=== PATIENT | female | born 1960 | race Two or more races ===

== ENCOUNTER 2022-09-10 13:18 | Inpatient (IN) | payer MEDICARE, OTHER ==
[~2022-09-10] VITALS: Ht 157.5 cm; Wt 88.3 kg
[2022-09-10 14:06] LABS: Basophils # (auto) 0 10 ^3/uL (0-0.2); Basophils % (auto) 0.5 % (0.0-2.0); Eosinophils # (auto) 0.1 10 ^3/uL (0-0.8); Eosinophils % (auto) 1.6 % (0.0-7.0); Hemoglobin 12.1 g/dL (12.2-16.2); Lymphocytes # (auto) 2.1 10 ^3/uL (0.4-5.4); Lymphocytes % (auto) 39.4 % (10.0-50.0); Mean Corpuscular Hemoglobin 27.4 pg (28.0-32.0); Mean Corpuscular Hgb Conc. 32.6 g/dL (32.0-36.0); Mean Corpuscular Volume 84.1 fL (80.0-100.0); Monocytes # (auto) 0.6 10 ^3/uL (0-1.3); Monocytes % (auto) 10.8 % (0.0-12.0); Neutrophils # (auto) 2.6 10 ^3/uL (1.6-8.6); Neutrophils % (auto) 47.7 % (37.0-80.0); Nucleated Red Blood Cells % 0.1 %; Red Cell Distribution Width 14.2 % (11.8-14.3); White Blood Cell 5.4 10^3/uL (4.4-10.8)
[2022-09-10 14:27] LABS: Albumin 4.1 g/dL (3.4-5.0); Calcium 9.3 mg/dL (8.5-10.1); Magnesium 1.8 mg/dL (1.6-2.6); Potassium 4.6 mmol/L (3.5-5.1)
[2022-09-10 14:29] LABS: BUN/Creatinine Ratio 10.4 (10.0-20.0); Bilirubin, Total 0.5 mg/dL (0.2-1.0); Total Protein 7.5 g/dL (6.4-8.2)
[2022-09-10 15:33] LABS: Lactic Acid w/Reflex 2.2 mmol/L (0.4-2.0)
[2022-09-10 15:42] LABS: Urine Bacteria NONE SEEN /hpf (None Seen); Urine Blood Negative /uL (Negative); Urine Specific Gravity 1.007 (1.001-1.035); Urine WBC 3 /hpf (0 - 5)
[2022-09-10] MEDS ORDERED: FUROSEMIDE 40 MG/4 ML VIAL IV ONE (16:30)
[2022-09-10] MEDS ORDERED: MECLIZINE HCL 25 MG TAB PO ONE (22:00)
[2022-09-11] VITALS (59 sets, daily range): BP systolic 103–206; BP diastolic 41–94
[2022-09-11] MEDS ORDERED: ONDANSETRON HCL 4 MG/2 ML VIAL IV PRN (00:30)
[2022-09-11] MEDS ORDERED: DEXTROSE (50%) 50ML SYRG IV PRN (00:30)
[2022-09-11] MEDS ORDERED: DOCUSATE SOD 100 MG CAP PO PRN (00:30)
[2022-09-11] MEDS ORDERED: ACETAMINOPHEN 325 MG TAB PO PRN (00:30)
[2022-09-11] MEDS ORDERED: MECLIZINE HCL 25 MG TAB PO PRN (00:30)
[2022-09-11] MEDS ORDERED: MORPHINE SULFATE INJ 2 MG/ml SYRG IV PRN (01:15)
[2022-09-11] MEDS ORDERED: NITROGLYCERIN 0.4 MG SL TAB SL PRN (01:15)
[2022-09-11] MEDS ORDERED: ATROPINE SULF 1 MG/10ml SYR IV ONE (01:30)
[2022-09-11] MEDS ORDERED: ATROPINE SULF 1 MG/10ml SYR ONE (01:50)
[2022-09-11] MEDS ORDERED: ATROPINE SULFATE 1 MG/1 ML VIAL ONE (01:51)
[2022-09-11] MEDS ORDERED: DOPamine 1600MCG/ML D5W 250 ML IV SCH ×2 (02:30)
[2022-09-11 05:30] LABS: Basophils # (auto) 0 10 ^3/uL (0-0.2); Basophils % (auto) 0.7 % (0.0-2.0); Eosinophils # (auto) 0.1 10 ^3/uL (0-0.8); Eosinophils % (auto) 2.4 % (0.0-7.0); Hematocrit 38.4 % (36.0-46.0); Hemoglobin 12.7 g/dL (12.2-16.2); Lymphocytes # (auto) 2.1 10 ^3/uL (0.4-5.4); Lymphocytes % (auto) 37.6 % (10.0-50.0); Mean Corpuscular Hemoglobin 27.5 pg (28.0-32.0); Mean Corpuscular Hgb Conc. 33.2 g/dL (32.0-36.0); Mean Corpuscular Volume 83.1 fL (80.0-100.0); Monocytes # (auto) 0.6 10 ^3/uL (0-1.3); Monocytes % (auto) 10.1 % (0.0-12.0); Neutrophils # (auto) 2.7 10 ^3/uL (1.6-8.6); Neutrophils % (auto) 49.2 % (37.0-80.0); Nucleated Red Blood Cells % 0.1 %; Red Blood Cells 4.62 10^6/uL (4.0-5.20); Red Cell Distribution Width 14.1 % (11.8-14.3); White Blood Cell 5.5 10^3/uL (4.4-10.8)
[2022-09-11 05:48] LABS: Albumin 4.3 g/dL (3.4-5.0); Potassium 3.3 mmol/L (3.5-5.1)
[2022-09-11 05:52] LABS: BUN/Creatinine Ratio 15.2 (10.0-20.0); Bilirubin, Total 0.5 mg/dL (0.2-1.0); Total Protein 8.1 g/dL (6.4-8.2)
[2022-09-11] MEDS: ACCU-CHEK COMFORT CURVE STRIP VI SCH ×4 (06:36→22:23)
[2022-09-11] MEDS: LEVOTHYROXINE SODIUM 25 MCG TAB PO SCH (06:36)
[2022-09-11] MEDS: InsuLIN REG 1unit/0.01ml Soln (100units/ml) SC SCH ×4 (06:38→22:31)
[2022-09-11] MEDS: SODIUM CHLOR 0.9% PF (SALINE LOCK) 10ML VIAL/SYR IV SCH ×3 (06:40→22:23)
[2022-09-11] MEDS: DOPamine 1600MCG/ML D5W 250 ML IV SCH ×2 (06:40→16:06)
[2022-09-11] MEDS ORDERED: METF-371 PO (07:10)
[2022-09-11] MEDS ORDERED: HYDR25TA4 PO (07:10)
[2022-09-11] MEDS ORDERED: PRAV20TA3 PO (07:10)
[2022-09-11] MEDS ORDERED: FENO145T27 PO (07:10)
[2022-09-11] MEDS ORDERED: [UNRECOGNIZED DRUG - CODE] PO (07:10)
[2022-09-11] MEDS ORDERED: RIV20T PO (07:10)
[2022-09-11] MEDS ORDERED: CHOL100047 PO (07:10)
[2022-09-11] MEDS ORDERED: METO-289 PO (07:10)
[2022-09-11] MEDS ORDERED: DIGO0.25 PO (07:10)
[2022-09-11] MEDS ORDERED: OMEP20TA PO (07:10)
[2022-09-11] MEDS ORDERED: LEVO25TA6 PO (07:10)
[2022-09-11] MEDS ORDERED: DOCU100T7 PO (07:10)
[2022-09-11] MEDS ORDERED: LOSA25TA15 PO (07:10)
[2022-09-11] MEDS ORDERED: COEN400C8 PO (07:10)
[2022-09-11] MEDS ORDERED: GLIP5TAB12 PO (07:45)
[2022-09-11] MEDS ORDERED: APIXABAN 5 MG TAB PO SCH (10:00)
[2022-09-11] MEDS ORDERED: POTASSIUM CHL 20 Meq TABLET PO ONE (10:30)
[2022-09-11] MEDS ORDERED: POTASSIUM CHL 20MEQ/100ML 100 ML IV ONE (10:30)
[2022-09-11] MEDS: FUROSEMIDE 40 MG/4 ML VIAL IV SCH (10:38)
[2022-09-11] MEDS: INSULIN LANTUS (GLARGINE) 1 /0.01ml (100units/ml) SC SCH (19:00)
[2022-09-11] MEDS: ENOXAPARIN SOD 100 MG/1 ML SYRINGE SC SCH (22:23)
[2022-09-11] MEDS: ATORVASTATIN 20 MG TAB PO SCH (22:23)
[2022-09-12] VITALS (62 sets, daily range): BP systolic 104–159; BP diastolic 47–88
[2022-09-12] MEDS: DOPamine 1600MCG/ML D5W 250 ML IV SCH (04:08)
[2022-09-12 05:29] LABS: Basophils # (auto) 0.1 10 ^3/uL (0-0.2); Basophils % (auto) 0.8 % (0.0-2.0); Eosinophils # (auto) 0.1 10 ^3/uL (0-0.8); Eosinophils % (auto) 2.1 % (0.0-7.0); Hematocrit 38.6 % (36.0-46.0); Hemoglobin 12.8 g/dL (12.2-16.2); Lymphocytes # (auto) 2.5 10 ^3/uL (0.4-5.4); Lymphocytes % (auto) 39.2 % (10.0-50.0); Mean Corpuscular Hemoglobin 27.7 pg (28.0-32.0); Mean Corpuscular Hgb Conc. 33.3 g/dL (32.0-36.0); Mean Corpuscular Volume 83.1 fL (80.0-100.0); Monocytes # (auto) 0.7 10 ^3/uL (0-1.3); Monocytes % (auto) 11.6 % (0.0-12.0); Neutrophils # (auto) 2.9 10 ^3/uL (1.6-8.6); Neutrophils % (auto) 46.3 % (37.0-80.0); Nucleated Red Blood Cells % 0.2 %; Red Blood Cells 4.64 10^6/uL (4.0-5.20); Red Cell Distribution Width 14.2 % (11.8-14.3); White Blood Cell 6.4 10^3/uL (4.4-10.8)
[2022-09-12 05:47] LABS: Potassium 3.8 mmol/L (3.5-5.1)
[2022-09-12 05:52] LABS: Albumin 4.1 g/dL (3.4-5.0); BUN/Creatinine Ratio 16.7 (10.0-20.0); Bilirubin, Total 0.6 mg/dL (0.2-1.0); Calcium 9.2 mg/dL (8.5-10.1); Total Protein 7.5 g/dL (6.4-8.2)
[2022-09-12] MEDS: SODIUM CHLOR 0.9% PF (SALINE LOCK) 10ML VIAL/SYR IV SCH ×3 (06:38→23:48)
[2022-09-12] MEDS: ACCU-CHEK COMFORT CURVE STRIP VI SCH ×4 (06:38→23:47)
[2022-09-12] MEDS: LEVOTHYROXINE SODIUM 25 MCG TAB PO SCH (06:38)
[2022-09-12] MEDS: InsuLIN REG 1unit/0.01ml Soln (100units/ml) SC SCH ×3 (06:40→17:00)
[2022-09-12] MEDS: POTASSIUM CHL 20 Meq TABLET PO SCH (10:39)
[2022-09-12] MEDS: ENOXAPARIN SOD 100 MG/1 ML SYRINGE SC SCH ×2 (10:39→23:48)
[2022-09-12] MEDS: FUROSEMIDE 40 MG/4 ML VIAL IV SCH (10:39)
[2022-09-12] MEDS: INSULIN LANTUS (GLARGINE) 1 /0.01ml (100units/ml) SC SCH (10:47)
[2022-09-12] MEDS: METOPROLOL TARTRATE 25 MG TAB PO SCH ×2 (15:24→23:47)
[2022-09-12] MEDS ORDERED: GLIP5TAB12 PO (15:31)
[2022-09-12] MEDS ORDERED: MET25T PO (15:33)
[2022-09-12] MEDS: SULFAMETHOX W/TRIMETH(800/160MG) DS TAB PO SCH ×2 (19:37→23:50)
[2022-09-12] MEDS: ATORVASTATIN 20 MG TAB PO SCH (23:47)
[2022-09-13] VITALS (17 sets, daily range): BP systolic 97–136; BP diastolic 39–91
[2022-09-13] MEDS: InsuLIN REG 1unit/0.01ml Soln (100units/ml) SC SCH ×2 (00:03→06:53)
[2022-09-13] MEDS: ACCU-CHEK COMFORT CURVE STRIP VI SCH (06:49)
[2022-09-13] MEDS: LEVOTHYROXINE SODIUM 25 MCG TAB PO SCH (06:49)
[2022-09-13] MEDS: SODIUM CHLOR 0.9% PF (SALINE LOCK) 10ML VIAL/SYR IV SCH (06:49)
[2022-09-13] MEDS: FUROSEMIDE 40 MG/4 ML VIAL IV SCH (09:39)
[2022-09-13] MEDS: METOPROLOL TARTRATE 25 MG TAB PO SCH (09:40)
[2022-09-13] MEDS: POTASSIUM CHL 20 Meq TABLET PO SCH (09:40)
[2022-09-13] MEDS: SULFAMETHOX W/TRIMETH(800/160MG) DS TAB PO SCH (09:40)
[2022-09-13] MEDS: ENOXAPARIN SOD 100 MG/1 ML SYRINGE SC SCH (09:41)
[2022-09-13] MEDS: INSULIN LANTUS (GLARGINE) 1 /0.01ml (100units/ml) SC SCH (09:51)
== END 2022-09-13 10:48 | disposition home or self-care (01) | DRG 310 ==
LOC: ER 13:18 → TELE 09-11 01:08 → UNDOADMIN 09-11 01:08 → TELE 09-11 02:56 → DOU IN ICU 09-11 04:52
PROVIDERS: ADMIT Nurse Practitioner Family; ATTEND Internal Medicine
PROC: 5A09357 Assistance with Respiratory Ventilation, Less than 24 Consecutive Hours, Continuous Positive Airway Pressure (ICD-10-PCS; principal; 2022-09-11)
PROC: 5A09357 Assistance with Respiratory Ventilation, Less than 24 Consecutive Hours, Continuous Positive Airway Pressure (ICD-10-PCS; 2022-09-12)
PROC: 5A09357 Assistance with Respiratory Ventilation, Less than 24 Consecutive Hours, Continuous Positive Airway Pressure (ICD-10-PCS; 2022-09-13)
DX: R00.1 Bradycardia, unspecified (principal); I48.91 Unspecified atrial fibrillation; E11.9 Type 2 diabetes mellitus without complications; E78.5 Hyperlipidemia, unspecified; I10 Essential (primary) hypertension; E03.9 Hypothyroidism, unspecified; E66.01 Morbid (severe) obesity due to excess calories; I07.1 Rheumatic tricuspid insufficiency; R79.89 Other specified abnormal findings of blood chemistry; K21.9 Gastro-esophageal reflux disease without esophagitis; K44.9 Diaphragmatic hernia without obstruction or gangrene; Z68.35 Body mass index [BMI] 35.0-35.9, adult; Z79.899 Other long term (current) drug therapy; Z83.3 Family history of diabetes mellitus; Z90.49 Acquired absence of other specified parts of digestive tract
CPT/HCPCS: 36415; 36600; 70450; 71045; 80053; 80162; 81001; 82805; 82962; 83605; 83735; 83880; 84443; 84484; 85025; 87081; 93005; 93306; 94660; 96365; 96375; G0378; J0461; J3480

== ENCOUNTER 2022-09-27 19:09 | Inpatient (IN) | payer MEDICARE, OTHER ==
[~2022-09-27] VITALS: Ht 165.1 cm; Wt 95.5 kg
[~2022-09-27 19:09] MED LIST: CHOL100047 PO; COEN400C8 PO; DOCU100T7 PO; FENO145T27 PO; GLIP5TAB12 PO; LEVO25TA6 PO; MET25T PO; METF-371 PO; OMEP20TA PO; PRAV20TA3 PO; RIV20T PO; [UNRECOGNIZED DRUG - CODE] PO
[2022-09-27 20:13] LABS: Basophils # (auto) 0.1 10 ^3/uL (0-0.2); Basophils % (auto) 0.9 % (0.0-2.0); Eosinophils # (auto) 0.1 10 ^3/uL (0-0.8); Eosinophils % (auto) 1.4 % (0.0-7.0); Hematocrit 35.9 % (36.0-46.0); Hemoglobin 11.7 g/dL (12.2-16.2); Lymphocytes # (auto) 2.2 10 ^3/uL (0.4-5.4); Lymphocytes % (auto) 39.3 % (10.0-50.0); Mean Corpuscular Hemoglobin 26.9 pg (28.0-32.0); Mean Corpuscular Hgb Conc. 32.7 g/dL (32.0-36.0); Mean Corpuscular Volume 82.4 fL (80.0-100.0); Monocytes # (auto) 0.6 10 ^3/uL (0-1.3); Monocytes % (auto) 10.1 % (0.0-12.0); Neutrophils # (auto) 2.8 10 ^3/uL (1.6-8.6); Neutrophils % (auto) 48.3 % (37.0-80.0); Nucleated Red Blood Cells % 0.1 %; Red Blood Cells 4.36 10^6/uL (4.0-5.20); Red Cell Distribution Width 14.7 % (11.8-14.3); White Blood Cell 5.7 10^3/uL (4.4-10.8)
[2022-09-27 21:18] LABS: Albumin 4.1 g/dL (3.4-5.0); Calcium 9.1 mg/dL (8.5-10.1); Potassium 4.1 mmol/L (3.5-5.1)
[2022-09-27 21:19] LABS: Urine Bacteria NONE SEEN /hpf (None Seen); Urine Blood Negative /uL (Negative); Urine Specific Gravity 1.007 (1.001-1.035); Urine WBC 1 /hpf (0 - 5)
[2022-09-27 21:21] LABS: Bilirubin, Total 0.4 mg/dL (0.2-1.0); Total Protein 7.8 g/dL (6.4-8.2)
[2022-09-27 21:33] LABS: INR 1.16 (0.9-1.15); Partial Thromboplastin Time 28.9 sec (24.6-33.4)
[2022-09-27] MEDS ORDERED: PIPERACILLIN-TAZOB 3.375GM 100 ML IV ONE (23:15)
[2022-09-28] MEDS ORDERED: MORPHINE SULFATE INJ 2 MG/ml SYRG IV PRN (03:00)
[2022-09-28] MEDS ORDERED: NITROGLYCERIN 0.4 MG SL TAB SL PRN (03:00)
[2022-09-28] MEDS: ONDANSETRON HCL 4 MG/2 ML VIAL IV SCH ×4 (06:00→17:45)
[2022-09-28] MEDS: MORPHINE SULFATE INJ 2 MG/ml SYRG IV SCH ×4 (06:00→17:45)
[2022-09-28] MEDS: glipiZIDE 5 MG TAB PO SCH (09:55)
[2022-09-28] MEDS: LEVOTHYROXINE SODIUM 25 MCG TAB PO SCH (09:56)
[2022-09-28] MEDS: metFORMIN HYDROCHLORIDE 850 MG TAB PO SCH ×2 (10:00→22:43)
[2022-09-28] MEDS ORDERED: ERYTHROMYCIN LACTOBIONATE 500 MG in SODIUM CHL 0.9% 250 ML IV SCH (10:00)
[2022-09-28] MEDS: METOPROLOL TARTRATE 25 MG TAB PO SCH ×2 (10:14→22:55)
[2022-09-28] MEDS: FUROSEMIDE 40 MG/4 ML VIAL IV SCH (10:14)
[2022-09-28] MEDS ORDERED: AZITHROMYCIN 500MG/ 250ML 250 ML IV ONE (10:30)
[2022-09-28 11:03] LABS: Free T3 2.76 pg/mL (2.3-4.2); Free T4 (Free Thyroxine) 1.12 ng/dL (0.89-1.76)
[2022-09-28] MEDS ORDERED: DEXTROSE (50%) 50ML SYRG IV PRN (16:00)
[2022-09-28] MEDS: ACCU-CHEK COMFORT CURVE STRIP VI SCH ×2 (17:00→22:34)
[2022-09-28] MEDS: InsuLIN REG 1unit/0.01ml Soln (100units/ml) SC SCH ×2 (17:00→22:39)
[2022-09-28] MEDS: IPRATROPIUM BROM 0.5 MG/2.5ML INH SOL NEB SCH ×2 (17:43→23:40)
[2022-09-28] MEDS ORDERED: RIVAROXABAN 15 MG TAB PO SCH (18:00)
[2022-09-28 19:00] VITALS: BP 128/74
[2022-09-28] MEDS ORDERED: ATORVASTATIN 20 MG TAB PO SCH (22:00)
[2022-09-29] MEDS: ONDANSETRON HCL 4 MG/2 ML VIAL IV SCH ×4 (02:00→14:00)
[2022-09-29] MEDS: MORPHINE SULFATE INJ 2 MG/ml SYRG IV SCH ×4 (02:00→14:00)
[2022-09-29 05:07] LABS: Cholesterol 84 mg/dL (< 200)
[2022-09-29 05:10] LABS: HDL Cholesterol 26 mg/dL (40-59); LDL Cholesterol 49 mg/dL (< 100); Triglycerides 126 mg/dL (< 150)
[2022-09-29] MEDS: IPRATROPIUM BROM 0.5 MG/2.5ML INH SOL NEB SCH ×2 (05:39→11:13)
[2022-09-29] MEDS: ACCU-CHEK COMFORT CURVE STRIP VI SCH ×2 (06:00→11:39)
[2022-09-29] MEDS: InsuLIN REG 1unit/0.01ml Soln (100units/ml) SC SCH ×2 (06:40→11:24)
[2022-09-29] MEDS ORDERED: AZITHROMYCIN 500MG/ 250ML 250 ML IV SCH ×2 (10:00)
[2022-09-29] MEDS ORDERED: FAMOTIDINE 20 MG TAB PO SCH (10:00)
[2022-09-29] MEDS: metFORMIN HYDROCHLORIDE 850 MG TAB PO SCH (10:00)
[2022-09-29] MEDS: glipiZIDE 5 MG TAB PO SCH (10:00)
[2022-09-29] MEDS ORDERED: CEFTRIAXONE SODIUM 2 GM in D5W 5% 100 ML IV SCH (10:00)
[2022-09-29] MEDS: FUROSEMIDE 40 MG/4 ML VIAL IV SCH (11:09)
[2022-09-29] MEDS: METOPROLOL TARTRATE 25 MG TAB PO SCH (11:10)
[2022-09-29] MEDS: LEVOTHYROXINE SODIUM 25 MCG TAB PO SCH (11:10)
[2022-09-29] MEDS ORDERED: DOXY-447 PO ×2 (14:43)
[2022-09-29] MEDS ORDERED: ALBUAER3 IN (14:43)
[2022-09-29 16:11] VITALS: BP 111/68
[2022-10-09] MEDS ORDERED: ATOR10TA52 PO (09:16)
== END 2022-09-29 16:48 | disposition home or self-care (01) | DRG 177 ==
LOC: ER 19:14 → TELE 09-28 03:11
PROVIDERS: ADMIT Internal Medicine; ATTEND Internal Medicine
DX: J15.6 Pneumonia due to other Gram-negative bacteria (principal); I50.33 Acute on chronic diastolic (congestive) heart failure; N30.00 Acute cystitis without hematuria; I48.19 Other persistent atrial fibrillation; J15.9 Unspecified bacterial pneumonia; Z20.822 Contact with and (suspected) exposure to COVID-19; I11.0 Hypertensive heart disease with heart failure; E11.9 Type 2 diabetes mellitus without complications; E03.9 Hypothyroidism, unspecified; I27.20 Pulmonary hypertension, unspecified; K21.9 Gastro-esophageal reflux disease without esophagitis; E78.5 Hyperlipidemia, unspecified; K44.9 Diaphragmatic hernia without obstruction or gangrene; M19.90 Unspecified osteoarthritis, unspecified site; E66.01 Morbid (severe) obesity due to excess calories; Z79.899 Other long term (current) drug therapy; Z79.84 Long term (current) use of oral hypoglycemic drugs; Z83.3 Family history of diabetes mellitus; Z90.49 Acquired absence of other specified parts of digestive tract; Z68.35 Body mass index [BMI] 35.0-35.9, adult
CPT/HCPCS: 36415; 71045; 71275; 80053; 80061; 81001; 82962; 83036; 83605; 83735; 83880; 84439; 84443; 84481; 84484; 85025; 85379; 85610; 85730; 87040; 87426; 87804; 94640; 96365; 96375; G0378; J0696; J1815; J2405; J2543; J7060

== ENCOUNTER 2022-10-13 08:25 | Inpatient (IN) | payer MEDICARE, OTHER ==
[2022-10-08 11:22] LABS: Basophils # (auto) 0 10 ^3/uL (0-0.2); Basophils % (auto) 0.4 % (0.0-2.0); Eosinophils # (auto) 0.1 10 ^3/uL (0-0.8); Eosinophils % (auto) 1.5 % (0.0-7.0)
[2022-10-08 11:24] LABS: Hematocrit 37.9 % (36.0-46.0); Hemoglobin 12.1 g/dL (12.2-16.2); Lymphocytes # (auto) 2.3 10 ^3/uL (0.4-5.4); Lymphocytes % (auto) 46.4 % (10.0-50.0); Mean Corpuscular Hemoglobin 25.9 pg (28.0-32.0); Mean Corpuscular Hgb Conc. 31.9 g/dL (32.0-36.0); Mean Corpuscular Volume 81.3 fL (80.0-100.0); Monocytes # (auto) 0.6 10 ^3/uL (0-1.3); Monocytes % (auto) 11.1 % (0.0-12.0); Neutrophils % (auto) 40.6 % (37.0-80.0); Nucleated Red Blood Cells % 0.1 %; Red Blood Cells 4.67 10^6/uL (4.0-5.20); Red Cell Distribution Width 14.3 % (11.8-14.3)
[2022-10-08 11:49] LABS: Urine Bacteria NONE SEEN /hpf (None Seen); Urine Blood Negative /uL (Negative); Urine Specific Gravity 1.013 (1.001-1.035); Urine WBC 2 /hpf (0 - 5)
[2022-10-08 11:57] LABS: Albumin 3.9 g/dL (3.4-5.0); Calcium 8.9 mg/dL (8.5-10.1); Potassium 4.6 mmol/L (3.5-5.1)
[2022-10-08 12:00] LABS: BUN/Creatinine Ratio 13.8 (10.0-20.0); Bilirubin, Total 0.6 mg/dL (0.2-1.0); Total Protein 7.6 g/dL (6.4-8.2)
[2022-10-08 12:48] LABS: INR 1.28 (0.9-1.15); Partial Thromboplastin Time 32.3 SEC (24.5-34.5)
[~2022-10-13] VITALS: Ht 165.1 cm; Wt 97.5 kg
[~2022-10-13 08:25] MED LIST changes: +ALBUAER3 IN; +ATOR10TA52 PO; -PRAV20TA3 PO
[2022-10-13] MEDS ORDERED: ceFAZolin 1GM/50ML 100 ML IV ONE (08:56)
[2022-10-13] MEDS ORDERED: MORPHINE SULFATE 4 MG/ML SYR/VIAL IV PRN ×2 (12:30→14:15)
[2022-10-13] MEDS ORDERED: NITROGLYCERIN 0.4 MG SL TAB SL PRN (12:30)
[2022-10-13] MEDS ORDERED: MORPHINE SULFATE INJ 2 MG/ml SYRG IV PRN (12:30)
[2022-10-13] MEDS: SODIUM CHLORIDE 0.9% 1,000 ML IV SCH ×2 (12:30→20:30)
[2022-10-13] MEDS ORDERED: ONDANSETRON HCL 4 MG/2 ML VIAL IV PRN ×2 (12:30→14:15)
[2022-10-13] MEDS: ceFAZolin 1GM/50ML 50 ML IV ONE (12:30)
[2022-10-13] MEDS ORDERED: ACETAMINOPHEN 500 MG TAB PO PRN (12:30)
[2022-10-13] MEDS ORDERED: fentaNYL CITRATE 100 MCG/2 ML VL ONE (12:40)
[2022-10-13] MEDS ORDERED: MEPERIDINE HCL (25 MG/ML) 1ML VIAL ONE ×2 (12:41)
[2022-10-13] MEDS ORDERED: DexAMETHasone SOD PHOS 10MG/1ML VIAL INJ ONE (12:41)
[2022-10-13] MEDS ORDERED: MIDAZOLAM HCL 2MG/2ML 2ml VIAL (1mg/ml) ONE (12:41)
[2022-10-13] MEDS ORDERED: PROPOFOL 10 MG/ML 20 ML IV ONE (12:41)
[2022-10-13] MEDS ORDERED: fentaNYL CITRATE 5 ML ONE (12:41)
[2022-10-13] MEDS ORDERED: LIDOCAINE W/ EPINEPHRINE 1% 20ML VIAL ONE (13:24)
[2022-10-13] MEDS ORDERED: BUPIVACAINE 0.25% INJ 50ML VIAL ONE (13:25)
[2022-10-13] MEDS ORDERED: ePHEDrine SULFATE 50 MG/ML AMP IV PRN (14:15)
[2022-10-13] MEDS ORDERED: MIDAZOLAM HCL 2MG/2ML 2ml VIAL (1mg/ml) IV PRN (14:15)
[2022-10-13] MEDS ORDERED: HYDROmorphone HCL 2 MG/ML VL/or syr IV PRN (14:15)
[2022-10-13] MEDS ORDERED: LABETALOL HCL 5 MG/ML 4ML SYRINGE IV PRN (14:15)
[2022-10-13] MEDS ORDERED: METHYLENE BLUE 0.5% 5MG/ML 10ml AMP IV ONE (14:28)
[2022-10-13] MEDS ORDERED: SUGAMMADEX 200mg/2ml Vial (100MG/ML) IV ONE (15:23)
[2022-10-13] MEDS ORDERED: HYDROmorphone HCL 2 MG/ML VL/or syr IV ONE (16:08)
[2022-10-13] MEDS ORDERED: DEXTROSE (50%) 50ML SYRG IV PRN (16:15)
[2022-10-13] MEDS: ACCU-CHEK COMFORT CURVE STRIP VI SCH ×2 (17:00→22:25)
[2022-10-13 19:00] VITALS: BP 132/67
[2022-10-13] MEDS: InsuLIN REG 1unit/0.01ml Soln (100units/ml) SC SCH ×2 (19:24→22:21)
[2022-10-13] MEDS: HYDROcodone-ACET 5/325MG TAB PO PRN (19:35)
[2022-10-13] MEDS: ENOXAPARIN SOD 40 MG/0.4 ML SYRINGE SC SCH (22:00)
[2022-10-13] MEDS: METOPROLOL TARTRATE 25 MG TAB PO SCH (22:22)
[2022-10-14] MEDS: HYDROcodone-ACET 5/325MG TAB PO PRN ×3 (01:45→21:18)
[2022-10-14 05:00] VITALS: BP 112/65
[2022-10-14 06:24] LABS: Basophils # (auto) 0 10 ^3/uL (0-0.2); Eosinophils # (auto) 0 10 ^3/uL (0-0.8); Hematocrit 32.4 % (36.0-46.0); Hemoglobin 10.5 g/dL (12.2-16.2); Lymphocytes # (auto) 0.9 10 ^3/uL (0.4-5.4); Lymphocytes % (auto) 9.9 % (10.0-50.0); Mean Corpuscular Hemoglobin 26.1 pg (28.0-32.0); Mean Corpuscular Hgb Conc. 32.4 g/dL (32.0-36.0); Mean Corpuscular Volume 80.5 fL (80.0-100.0); Monocytes # (auto) 0.7 10 ^3/uL (0-1.3); Monocytes % (auto) 7.3 % (0.0-12.0); Neutrophils # (auto) 7.7 10 ^3/uL (1.6-8.6); Neutrophils % (auto) 82.8 % (37.0-80.0); Red Blood Cells 4.02 10^6/uL (4.0-5.20); Red Cell Distribution Width 14.6 % (11.8-14.3); White Blood Cell 9.3 10^3/uL (4.4-10.8)
[2022-10-14 06:34] LABS: Calcium 8.6 mg/dL (8.5-10.1); Potassium 4.3 mmol/L (3.5-5.1)
[2022-10-14] MEDS: LEVOTHYROXINE SODIUM 25 MCG TAB PO SCH (06:39)
[2022-10-14] MEDS: ACCU-CHEK COMFORT CURVE STRIP VI SCH ×4 (06:39→21:38)
[2022-10-14] MEDS: InsuLIN REG 1unit/0.01ml Soln (100units/ml) SC SCH ×4 (06:43→21:37)
[2022-10-14 09:12] VITALS: BP 115/61
[2022-10-14] MEDS: ENOXAPARIN SOD 40 MG/0.4 ML SYRINGE SC SCH (10:00)
[2022-10-14] MEDS: SODIUM CHLORIDE 0.9% 1,000 ML IV SCH (10:04)
[2022-10-14] MEDS: METOPROLOL TARTRATE 25 MG TAB PO SCH ×2 (10:05→21:20)
[2022-10-14] MEDS: FUROSEMIDE 40 MG TAB PO SCH (10:05)
[2022-10-14 13:00] VITALS: BP 116/50
[2022-10-14 13:05] VITALS: BP 115/61
[2022-10-14 16:59] VITALS: BP 115/45
[2022-10-14] MEDS ORDERED: RIVAROXABAN 20 MG TAB PO SCH (18:00)
[2022-10-14 22:00] VITALS: BP 130/73
[2022-10-15] MEDS ORDERED: DOCUSATE SOD 100 MG CAP PO PRN (01:00)
[2022-10-15 05:00] VITALS: BP 112/57
[2022-10-15] MEDS: LEVOTHYROXINE SODIUM 25 MCG TAB PO SCH (06:09)
[2022-10-15] MEDS: HYDROcodone-ACET 5/325MG TAB PO PRN (06:18)
[2022-10-15] MEDS: ACCU-CHEK COMFORT CURVE STRIP VI SCH ×2 (06:21→12:17)
[2022-10-15] MEDS: InsuLIN REG 1unit/0.01ml Soln (100units/ml) SC SCH ×2 (06:22→11:30)
[2022-10-15 09:00] VITALS: BP 117/65
[2022-10-15] MEDS: METOPROLOL TARTRATE 25 MG TAB PO SCH (09:10)
[2022-10-15] MEDS: FUROSEMIDE 40 MG TAB PO SCH (09:10)
[2022-10-15 10:14] LABS: Hepatitis C Antibody Negative (Negative)
[2022-10-15 13:00] VITALS: BP 110/62
== END 2022-10-15 15:44 | disposition home or self-care (01) | DRG 742 ==
LOC: SUR 08:25 → OVERFLOW 12:32 → TELE 15:49 → TELE-WESTW 17:36
PROVIDERS: ADMIT Obstetrics & Gynecology; ATTEND Internal Medicine
PROC: 0UT24ZZ Resection of Bilateral Ovaries, Percutaneous Endoscopic Approach (ICD-10-PCS; 2022-10-13)
PROC: 0UT94ZZ Resection of Uterus, Percutaneous Endoscopic Approach (ICD-10-PCS; 2022-10-13)
PROC: 0UT74ZZ Resection of Bilateral Fallopian Tubes, Percutaneous Endoscopic Approach (ICD-10-PCS; 2022-10-13)
PROC: 0USG4ZZ Reposition Vagina, Percutaneous Endoscopic Approach (ICD-10-PCS; 2022-10-13)
PROC: 8E0W4CZ Robotic Assisted Procedure of Trunk Region, Percutaneous Endoscopic Approach (ICD-10-PCS; 2022-10-13)
PROC: 5A09357 Assistance with Respiratory Ventilation, Less than 24 Consecutive Hours, Continuous Positive Airway Pressure (ICD-10-PCS; principal; 2022-10-13 13:33)
DX: N81.4 Uterovaginal prolapse, unspecified (principal); I50.42 Chronic combined systolic (congestive) and diastolic (congestive) heart failure; I27.20 Pulmonary hypertension, unspecified; E11.9 Type 2 diabetes mellitus without complications; I11.0 Hypertensive heart disease with heart failure; I48.91 Unspecified atrial fibrillation; E78.5 Hyperlipidemia, unspecified; E03.9 Hypothyroidism, unspecified; E66.01 Morbid (severe) obesity due to excess calories; K21.9 Gastro-esophageal reflux disease without esophagitis; Z79.4 Long term (current) use of insulin; Z79.01 Long term (current) use of anticoagulants; Z79.84 Long term (current) use of oral hypoglycemic drugs; Z79.899 Other long term (current) drug therapy; Z83.3 Family history of diabetes mellitus; Z90.710 Acquired absence of both cervix and uterus; Z68.35 Body mass index [BMI] 35.0-35.9, adult
CPT/HCPCS: 36415; 71045; 80048; 80053; 81001; 82962; 85025; 85610; 85730; 86803; 86850; 86870; 86900; 86901; 87340; 94660; G0378; J0690; J1100; J1815; J2250; J2405; J2704; J3490

== ENCOUNTER 2023-08-12 22:51 | Emergency (ER) | payer MEDICARE, OTHER ==
[~2023-08-12] VITALS: Ht 165.1 cm; Wt 100.0 kg
[~2023-08-12 22:51] MED LIST changes: -GLIP5TAB12 PO; +GLIP5TAB21 PO
[2023-08-13] MEDS ORDERED: METH4PAK PO (00:01)
[2023-08-13 02:11] VITALS: BP 121/71; PULSE 86; RESP 20; TEMP 97.8; O2SAT 96
== END 2023-08-13 02:13 | disposition home or self-care (01) ==
LOC: ER 22:51
DX: G51.0 Bell's palsy (principal); I10 Essential (primary) hypertension; E11.9 Type 2 diabetes mellitus without complications
CPT/HCPCS: 70450; 93005

== ENCOUNTER 2024-01-19 12:59 | Inpatient (IN) | payer MEDICARE, OTHER ==
[~2024-01-19] VITALS: Ht 165.1 cm; Wt 108.8 kg
[~2024-01-19 12:59] MED LIST changes: +METH4PAK PO
[2024-01-19 13:51] LABS: Basophils # (auto) 0 10 ^3/uL (0-0.2); Basophils % (auto) 0.9 % (0.0-2.0); Eosinophils # (auto) 0.1 10 ^3/uL (0-0.8); Eosinophils % (auto) 1.4 % (0.0-7.0); Hematocrit 43.4 % (36.0-46.0); Hemoglobin 14.6 g/dL (12.2-16.2); Lymphocytes # (auto) 1.7 10 ^3/uL (0.4-5.4); Lymphocytes % (auto) 35.4 % (10.0-50.0); Mean Corpuscular Hemoglobin 30.3 pg (28.0-32.0); Mean Corpuscular Hgb Conc. 33.7 g/dL (32.0-36.0); Mean Corpuscular Volume 89.9 fL (80.0-100.0); Monocytes # (auto) 0.5 10 ^3/uL (0-1.3); Monocytes % (auto) 9.4 % (0.0-12.0); Neutrophils # (auto) 2.6 10 ^3/uL (1.6-8.6); Neutrophils % (auto) 52.9 % (37.0-80.0); Nucleated Red Blood Cells % 0.4 %; Platelet Count (auto) 260 10^3/uL (140-450); Red Blood Cells 4.82 10^6/uL (4.0-5.20); Red Cell Distribution Width 14.9 % (11.8-14.3); White Blood Cell 4.9 10^3/uL (4.4-10.8)
[2024-01-19 14:04] LABS: Albumin 4.8 g/dL (3.2-4.8); Alkaline Phosphatase 26 U/L (46-116); Anion Gap 10 (5-15); Aspartate Aminotransferase 24 U/L (13-40); BUN/Creatinine Ratio 14.1 (10.0-20.0); Bilirubin, Total 0.6 mg/dL (0.2-1.0); Blood Urea Nitrogen 13 mg/dL (9-23); Calcium 10.1 mg/dL (8.7-10.4); Carbon Dioxide 25 mmol/L (20-31); Chloride 104 mmol/L (98-107); Glucose 101 mg/dL (74-106); Magnesium 1.8 mg/dL (1.6-2.6); Sodium 139 mmol/L (136-145)
[2024-01-19 14:05] LABS: Total Protein 7.6 g/dL (5.7-8.2)
[2024-01-19 14:25] LABS: Alanine Aminotransferase 19 U/L (7-40)
[2024-01-19] MEDS: FUROSEMIDE 20 MG/2 ML VIAL IV ONE ×2 (18:00→23:47)
[2024-01-19 19:25] LABS: Urine Bacteria None Seen /hpf (None Seen)
[2024-01-19 19:48] LABS: Urine Blood Negative /uL (Negative); Urine Clarity Clear (Clear); Urine Color Yellow (Yellow); Urine Protein, UAD TRACE (Negative); Urine Specific Gravity 1.027 (1.001-1.035); Urine Urobilinogen Normal (Negative); Urine WBC 31 /hpf (0 - 5)
[2024-01-19] MEDS ORDERED: MORPHINE SULFATE INJ 2 MG/ml SYRG IV PRN (22:00)
[2024-01-19 23:20] VITALS: PULSE 59; RESP 20; O2SAT 97
[2024-01-19] MEDS: SPIRONOLACTONE 25 MG TAB PO ONE (23:46)
[2024-01-19] MEDS: cefTRIAXone 1GM/50ML D5W 50 ML IV ONE (23:48)
[2024-01-20] VITALS (12 sets, daily range): BP systolic 112–148; BP diastolic 76–89; PULSE 74–115; RESP 16–20; TEMP 97.6–98; O2SAT 90–99
[2024-01-20] MEDS: AZITHROMYCIN 500MG/ 250ML 250 ML IV ONE (00:07)
[2024-01-20] MEDS: predniSONE 20 MG TAB PO ONE (01:16)
[2024-01-20] MEDS: LEVOTHYROXINE SODIUM 25 MCG TAB PO SCH (08:15)
[2024-01-20 09:29] LABS: Basophils # (auto) 0 10 ^3/uL (0-0.2); Basophils % (auto) 0.3 % (0.0-2.0); Eosinophils # (auto) 0 10 ^3/uL (0-0.8); Eosinophils % (auto) 0.3 % (0.0-7.0); Hematocrit 44.3 % (36.0-46.0); Hemoglobin 15.1 g/dL (12.2-16.2); Lymphocytes # (auto) 0.8 10 ^3/uL (0.4-5.4); Lymphocytes % (auto) 22.7 % (10.0-50.0); Mean Corpuscular Hgb Conc. 34.1 g/dL (32.0-36.0); Mean Corpuscular Volume 90.9 fL (80.0-100.0); Monocytes # (auto) 0.1 10 ^3/uL (0-1.3); Monocytes % (auto) 1.8 % (0.0-12.0); Neutrophils # (auto) 2.5 10 ^3/uL (1.6-8.6); Neutrophils % (auto) 74.9 % (37.0-80.0); Nucleated Red Blood Cells % 0.2 %; Platelet Count (auto) 259 10^3/uL (140-450); Red Blood Cells 4.87 10^6/uL (4.0-5.20); Red Cell Distribution Width 14.4 % (11.8-14.3); White Blood Cell 3.4 10^3/uL (4.4-10.8)
[2024-01-20 09:42] LABS: Alanine Aminotransferase 17 U/L (7-40); Alkaline Phosphatase 25 U/L (46-116); Anion Gap 8 (5-15); Aspartate Aminotransferase 19 U/L (13-40); BUN/Creatinine Ratio 11.5 (10.0-20.0); Blood Urea Nitrogen 12 mg/dL (9-23); Calcium 10.3 mg/dL (8.7-10.4); Carbon Dioxide 28 mmol/L (20-31); Chloride 99 mmol/L (98-107); Glucose 261 mg/dL (74-106); Sodium 135 mmol/L (136-145)
[2024-01-20 09:44] LABS: Bilirubin, Total 0.5 mg/dL (0.2-1.0)
[2024-01-20 09:59] LABS: Rapid Influenza A Negative (Negative); Rapid Influenza B Negative (Negative)
[2024-01-20] MEDS ORDERED: glipiZIDE 5 MG TAB PO SCH (10:00)
[2024-01-20] MEDS ORDERED: metFORMIN HYDROCHLORIDE 850 MG TAB PO SCH (10:00)
[2024-01-20 10:31] LABS: COVID19 ANTIGEN SOFIA FIA NEGATIVE (NEGATIVE)
[2024-01-20] MEDS: APIXABAN 5 MG TAB PO SCH (11:06)
[2024-01-20] MEDS ORDERED: DEXTROSE (50%) 50ML SYRG IV PRN (11:30)
[2024-01-20] MEDS: IPRATROPIUM BROM 0.5 MG/2.5ML INH SOL NEB PRN (11:36)
[2024-01-20] MEDS: ALBUTEROL SULF 2.5 MG/0.5ML(0.5%) NEB SOLN NEB PRN (11:37)
[2024-01-20] MEDS ORDERED: ATORVASTATIN 20 MG TAB PO ONE (11:45)
[2024-01-20] MEDS: ACCU-CHEK COMFORT CURVE STRIP VI SCH (12:32)
[2024-01-20] MEDS: InsuLIN REG 1unit/0.01ml Soln (100units/ml) SC SCH (12:35)
[2024-01-20] MEDS: PANTOPRAZOLE 40 MG/10 ML VIAL INJ IV ONE (12:53)
[2024-01-20] MEDS: cefTRIAXone 1GM/50ML D5W 50 ML IV ONE (14:13)
[2024-01-20] MEDS: ATORVASTATIN 20 MG TAB PO SCH (22:10)
[2024-01-21] VITALS (11 sets, daily range): BP systolic 126–150; BP diastolic 58–93; PULSE 52–111; RESP 16–20; TEMP 97.5–98.7; O2SAT 92–99
[2024-01-21 07:13] LABS: Basophils # (auto) 0 10 ^3/uL (0-0.2); Basophils % (auto) 0.3 % (0.0-2.0); Eosinophils # (auto) 0 10 ^3/uL (0-0.8); Eosinophils % (auto) 0.5 % (0.0-7.0); Hematocrit 40.3 % (36.0-46.0); Hemoglobin 13.6 g/dL (12.2-16.2); Lymphocytes # (auto) 2.2 10 ^3/uL (0.4-5.4); Lymphocytes % (auto) 40.2 % (10.0-50.0); Mean Corpuscular Hemoglobin 30.4 pg (28.0-32.0); Mean Corpuscular Hgb Conc. 33.7 g/dL (32.0-36.0); Mean Corpuscular Volume 90.1 fL (80.0-100.0); Monocytes # (auto) 0.6 10 ^3/uL (0-1.3); Monocytes % (auto) 11.1 % (0.0-12.0); Neutrophils # (auto) 2.7 10 ^3/uL (1.6-8.6); Neutrophils % (auto) 47.9 % (37.0-80.0); Nucleated Red Blood Cells % 0.3 %; Platelet Count (auto) 223 10^3/uL (140-450); Red Blood Cells 4.47 10^6/uL (4.0-5.20); Red Cell Distribution Width 14.5 % (11.8-14.3); White Blood Cell 5.6 10^3/uL (4.4-10.8)
[2024-01-21 07:15] LABS: Anion Gap 11 (5-15); Carbon Dioxide 26 mmol/L (20-31); Chloride 101 mmol/L (98-107); Potassium 3.9 mmol/L (3.5-5.1); Sodium 138 mmol/L (136-145)
[2024-01-21 07:17] LABS: Calcium 9.7 mg/dL (8.7-10.4)
[2024-01-21 07:21] LABS: Blood Urea Nitrogen 16 mg/dL (9-23); Glucose 148 mg/dL (74-106)
[2024-01-21] MEDS: FUROSEMIDE 40 MG/4 ML VIAL IV ONE (08:52)
[2024-01-21] MEDS: cefTRIAXone 1GM/50ML D5W 50 ML IV SCH (09:00)
[2024-01-21] MEDS: methylPREDNISolone SOD SUCC 40 MG/ML VL IV SCH (09:34)
[2024-01-21] MEDS: PANTOPRAZOLE 40 MG/10 ML VIAL INJ IV SCH (09:34)
[2024-01-21] MEDS ORDERED: OMEP-448 PO (16:05)
[2024-01-21] MEDS ORDERED: METO25TA5 PO (16:05)
[2024-01-21] MEDS ORDERED: HYDR25TA4 PO (16:05)
[2024-01-21] MEDS ORDERED: APIX5TAB PO (16:05)
[2024-01-21] MEDS ORDERED: PRAV20TA3 PO (16:05)
[2024-01-21] MEDS ORDERED: FENO160T PO (16:06)
[2024-01-21] MEDS ORDERED: FUROSEMIDE 40 MG/4 ML VIAL IV SCH (18:00)
[2024-01-21] MEDS: AZITHROMYCIN 500MG/ 250ML 250 ML IV SCH (21:35)
[2024-01-22] VITALS (14 sets, daily range): BP systolic 103–152; BP diastolic 67–88; PULSE 61–107; RESP 16–19; TEMP 97.6–98.3; O2SAT 94–98
[2024-01-22 05:39] LABS: Basophils # (auto) 0 10 ^3/uL (0-0.2); Basophils % (auto) 0.4 % (0.0-2.0); Eosinophils # (auto) 0 10 ^3/uL (0-0.8); Eosinophils % (auto) 0.3 % (0.0-7.0); Hematocrit 40.8 % (36.0-46.0); Hemoglobin 13.8 g/dL (12.2-16.2); Lymphocytes # (auto) 2.4 10 ^3/uL (0.4-5.4); Lymphocytes % (auto) 30.6 % (10.0-50.0); Mean Corpuscular Hemoglobin 30.6 pg (28.0-32.0); Mean Corpuscular Hgb Conc. 33.7 g/dL (32.0-36.0); Mean Corpuscular Volume 90.6 fL (80.0-100.0); Monocytes # (auto) 0.8 10 ^3/uL (0-1.3); Monocytes % (auto) 10.5 % (0.0-12.0); Neutrophils # (auto) 4.6 10 ^3/uL (1.6-8.6); Neutrophils % (auto) 58.2 % (37.0-80.0); Nucleated Red Blood Cells % 0.1 %; Platelet Count (auto) 232 10^3/uL (140-450); Red Blood Cells 4.51 10^6/uL (4.0-5.20); Red Cell Distribution Width 14.4 % (11.8-14.3); White Blood Cell 7.8 10^3/uL (4.4-10.8)
[2024-01-22 06:01] LABS: Chloride 102 mmol/L (98-107); Potassium 3.8 mmol/L (3.5-5.1); Sodium 137 mmol/L (136-145)
[2024-01-22 06:02] LABS: Anion Gap 8 (5-15); Calcium 9.5 mg/dL (8.7-10.4); Carbon Dioxide 27 mmol/L (20-31)
[2024-01-22 06:07] LABS: BUN/Creatinine Ratio 19.6 (10.0-20.0); Blood Urea Nitrogen 19 mg/dL (9-23); Glucose 122 mg/dL (74-106)
[2024-01-22] MEDS: FUROSEMIDE 40 MG/4 ML VIAL IV SCH (08:56)
[2024-01-23] VITALS (11 sets, daily range): BP systolic 107–159; BP diastolic 49–94; PULSE 65–107; RESP 16–20; TEMP 36.9; O2SAT 95–99
[2024-01-23 08:18] LABS: Basophils # (auto) 0 10 ^3/uL (0-0.2); Basophils % (auto) 0.5 % (0.0-2.0); Eosinophils # (auto) 0 10 ^3/uL (0-0.8); Eosinophils % (auto) 0.6 % (0.0-7.0); Hematocrit 44.6 % (36.0-46.0); Lymphocytes # (auto) 2.4 10 ^3/uL (0.4-5.4); Lymphocytes % (auto) 35.3 % (10.0-50.0); Mean Corpuscular Hemoglobin 30.6 pg (28.0-32.0); Mean Corpuscular Hgb Conc. 33.7 g/dL (32.0-36.0); Mean Corpuscular Volume 90.8 fL (80.0-100.0); Monocytes # (auto) 0.6 10 ^3/uL (0-1.3); Monocytes % (auto) 9.3 % (0.0-12.0); Neutrophils # (auto) 3.8 10 ^3/uL (1.6-8.6); Neutrophils % (auto) 54.3 % (37.0-80.0); Platelet Count (auto) 243 10^3/uL (140-450); Red Blood Cells 4.92 10^6/uL (4.0-5.20); Red Cell Distribution Width 14.6 % (11.8-14.3); White Blood Cell 6.9 10^3/uL (4.4-10.8)
[2024-01-23 08:43] LABS: Alanine Aminotransferase 20 U/L (7-40); Albumin 4.7 g/dL (3.2-4.8); Alkaline Phosphatase 25 U/L (46-116); Anion Gap 9 (5-15); Aspartate Aminotransferase 21 U/L (13-40); BUN/Creatinine Ratio 19.5 (10.0-20.0); Bilirubin, Total 0.7 mg/dL (0.2-1.0); Blood Urea Nitrogen 17 mg/dL (9-23); Calcium 9.8 mg/dL (8.7-10.4); Carbon Dioxide 27 mmol/L (20-31); Chloride 101 mmol/L (98-107); Potassium 3.7 mmol/L (3.5-5.1); Sodium 137 mmol/L (136-145); Total Protein 7.5 g/dL (5.7-8.2)
[2024-01-23 08:46] LABS: Glucose 120 mg/dL (74-106)
[2024-01-23] MEDS ORDERED: DOX100PBAE PO (17:18)
[2024-01-23] MEDS ORDERED: PRED10TA PO (17:19)
== END 2024-01-23 19:33 | disposition home or self-care (01) | DRG 177 ==
LOC: ER 12:59 → OVERFLOW 22:01 → EAST 01-20 12:11 → WEST WING 01-22 10:45
PROVIDERS: ADMIT Internal Medicine; ATTEND Emergency Medicine
DX: J15.69 Pneumonia due to other Gram-negative bacteria (principal); I50.33 Acute on chronic diastolic (congestive) heart failure; J44.1 Chronic obstructive pulmonary disease with (acute) exacerbation; N30.01 Acute cystitis with hematuria; I11.0 Hypertensive heart disease with heart failure; J15.9 Unspecified bacterial pneumonia; I48.91 Unspecified atrial fibrillation; E78.5 Hyperlipidemia, unspecified; E66.9 Obesity, unspecified; E11.65 Type 2 diabetes mellitus with hyperglycemia; Z20.822 Contact with and (suspected) exposure to COVID-19; I27.20 Pulmonary hypertension, unspecified; N81.10 Cystocele, unspecified; Z68.38 Body mass index [BMI] 38.0-38.9, adult; Z90.49 Acquired absence of other specified parts of digestive tract
CPT/HCPCS: 36415; 71045; 71046; 71250; 80048; 80053; 81001; 82962; 83036; 83735; 83880; 84443; 84484; 85025; 85379; 87081; 87086; 87426; 87804; 93005; 93306; 93970; 94640; G0378; J1815; J2470

== ENCOUNTER 2024-03-06 12:38 | Inpatient (IN) | payer MEDICARE, OTHER ==
[~2024-03-06] VITALS: Ht 165.1 cm; Wt 121.5 kg
[~2024-03-06 12:38] MED LIST changes: +APIX5TAB PO; -ATOR10TA52 PO; -COEN400C8 PO; -DOCU100T7 PO; +DOX100PBAE PO; -FENO145T27 PO; +FENO160T PO; +HYDR25TA4 PO; +LEVO50TA7 PO; -MET25T PO; -METH4PAK PO; +METO25TA5 PO; +OMEP-448 PO; -OMEP20TA PO; +PRAV20TA3 PO; +PRED10TA PO; -RIV20T PO; -[UNRECOGNIZED DRUG - CODE] PO
--- NOTE | 2024-03-06 12:53 | ED.PDOC ---
HPI Comments HPI: Poor Historian. 64-year-old female presents to emergency department for two day history of left- sided chest pain nonradiating sharp in nature with the associated shortness of breath. Denies any other associated symptoms. Past Medcial History: Atrial fibrillation, hypertension, thyroid disease, CHF, diabetes Past Surgical History: Gallbladder, hysterectomy, bilateral knee replacement. Patient is on Eliquis, HCTZ, glipizide, metoprolol, metformin REVIEW OF SYSTEMS: CONSTITUTIONAL: Denies acute: fever, diaphoresis, chills, generalized weakness. HEAD: Denies acute: headache, photophobia Eyes: Denies acute: Double vision, vision loss, eye pain, eye discharge. EARS: Denies acute: tinnitus, hearing loss, ear discharge, ear pain, THROAT: Denies acute: sore throat, swelling, difficulty swallowing , pain with swallowing, change in voice. NECK: Denies acute: neck pain, neck swelling, stiff neck. HEART: Denies acute : palpitations, LUNGS: Denies acute: wheezing, cough, hemoptysis ABDOMEN: Denies acute: abdominal pain, Nausea, Vomiting, diarrhea, melena , hematemesis, hematochezia SKIN: Denies acute: rash, redness, lesions, itchiness. EXTREMITIES: Denies acute: calf pain, numbness, tingling, weakness, denies pain in extremity. Denies acute: Low back pain. Neuro: Denies acute: focal neurological deficit, motor or sensory focal neurological deficit, tremors, seizure like activity, confusion, dizziness, change in mental status, loss of bowel or bladder function, cauda equina like symptoms. : Denies acute: dysuria, hematuria, flank pain, increase in urinary frequency. PSYCH: Denies acute: hallucination, suicidal ideation, homicidal ideation. FEMALE: Denies acute: abnormal vaginal bleeding, foul odor, unusual discharge. PHYSICAL EXAM: General: no acute distress, awake and alert. Head: normocephalic, atraumatic. Neck: supple, trachea is midline, no swelling. Throat: Normal phonation. Eyes:, no erythema, no purulent discharge, no proptosis, no icterus. Heart: regular rate, regular rhythm, no significant murmur appreciated. Lungs: no apparent respiratory distress, Able to speak in full sentences. No wheezing, no rhonchi, no crackles. No stridors Clear to auscultation bilaterally. Abdomen: non tender to palpation, non distended, soft, no guarding, no rebound, + bowel sounds. Obese Neuro: Awake, Alert, oriented to name, self, situation, follows commands GCS=15. Speech is normal. Skin: no petechia, no purpura, no cyanosis, non-pale, not jaundice. Lower extremities: --1/4 bilateral - Pitting edema no deformity, no focal swelling, no calf TTP. Makes eye contact. moves all four extremities. Face: no apparent facial droop. Ambulating in the ED independently. Time Seen by MD: 12:47 Primary Care Provider: SHELTON Reviewed Notes: Nurses Notes, Medications, Allergies Allergies: Coded Allergies: NO KNOWN ALLERGIES (Unverified , 09/10/22) Home Meds Active Scripts Baclofen (Baclofen) 5 Mg Tab, 5 MG PO TIDPRN PRN for 7 Days, #21 TAB 0 Refills Prov:LISA DAY MD 03/07/24 Albuterol Sulfate (VENTOLIN MDI) 90 Mcg Ih, 90 MCG IN Q4HPRN PRN for 30 Days, #1 INH Prov:THANG NEWMAN NP 09/29/22 Reported Medications Levothyroxine Sodium (Levothyroxine Sodium) 50 Mcg Tab, 1 TAB PO DAILY for 90 Days, #90 03/07/24 Metoprolol Tartrate (Metoprolol Tartrate) 25 Mg Tab, 1 TAB PO BID, #180 TAB 1 Refill 03/07/24 Amiodarone Hcl (Amiodarone Hcl) 200 Mg Tab, 200 MG PO DAILY for 30 Days 03/07/24 Fenofibrate (Fenofibrate) 160 Mg Tab, 160 MG PO DAILY, TAB 01/21/24 Apixaban Base (ELIQUIS) 5 Mg Tab, 5 MG PO BID, TAB 01/21/24 Hydrochlorothiazide (Hydrochlorothiazide) 25 Mg Tab, 25 MG PO QAM, MG 01/21/24 Pravastatin Sodium (PRAVACHOL TABLET) 20 Mg Tb, 1 TAB PO HS, TAB 01/21/24 Omeprazole (Omeprazole Dr) 40 Mg Cap, 40 MG PO DAILY, CAP 01/21/24 Glipizide (Glipizide) 5 Mg Tab, 5 MG PO DAILY, MG 09/11/22 Cholecalciferol (D3) 1,000 Unit Cap, 1000 UNIT PO DAILY, CAP 09/11/22 Metformin Hydrochloride (Metformin Hcl) 850 Mg Tab, 850 MG PO BID, MG 09/11/22 Discontinued Reported Medications Amiodarone HCl (Amiodarone HCl) 200 Mg Tab, 1 TAB PO BID 03/06/24 Metoprolol Tartrate (Metoprolol Tartrate) 25 Mg Tab, 25 MG PO TID, MG 01/21/24 Levothyroxine Sodium (Levothyroxine Sodium) 25 Mcg Tab, 25 MCG PO QAM, MCG 09/11/22 Discontinued Scripts Prednisone (Prednisone) 10 Mg Tab, 10 MG PO BID for 3 Days, #8 MG Prov:NIKHIL GILL MD 01/23/24 Doxycycline Hyclate (Doxy 100) 100 Mg Inj, 100 MG PO BID for 5 Days, #10 TAB Prov:NIKHIL GILL MD 01/23/24 Information Source: Patient Past Medical History PAST MEDICAL HISTORY: AFIB, CHF, DM, High Lipids, HTN, Thyroid Surgical History: 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 Was a procedure done?: No X-Ray, Labs, Meds, VS Vital Signs Date Time Temp Pulse Resp B/P (MAP) Pulse Ox O2 Delivery O2 Flow Rate FiO2 03/06/24 16:21 83 16 127/72 (90) 97 03/06/24 16:21 127/72 03/06/24 15:19 110/55 03/06/24 15:10 67 03/06/24 15:10 67 16 110/55 (73) 95 03/06/24 13:49 95 03/06/24 12:53 97.6 72 16 121/76 (91) 97 03/06/24 12:50 95 Lab Test 03/06/24 16:06 03/06/24 13:44 03/06/24 12:46 Range/Units Troponin I High Sensitivity 6 6 5 </=34 ng/L White Blood Count 6.8 4.4-10.8 10^3/uL Red Blood Count 5.17 4.0-5.20 10^6/uL Hemoglobin 15.8 12.2-16.2 g/dL Hematocrit 46.7 H 36.0-46.0 % Mean Corpuscular Volume 90.3 80.0-100.0 fL Mean Corpuscular Hemoglobin 30.6 28.0-32.0 pg Mean Corpuscular Hemoglobin Concent 33.9 32.0-36.0 g/dL Red Cell Distribution Width 15.0 H 11.8-14.3 % Platelet Count 243 140-450 10^3/uL Mean Platelet Volume 9.8 6.9-10.8 fL Neutrophils (%) (Auto) 63.5 37.0-80.0 % Lymphocytes (%) (Auto) 27.2 10.0-50.0 % Monocytes (%) (Auto) 8.5 0.0-12.0 % Eosinophils (%) (Auto) 0.4 0.0-7.0 % Basophils (%) (Auto) 0.4 0.0-2.0 % Neutrophils # (Auto) 4.3 1.6-8.6 10 ^3/uL Lymphocytes # (Auto) 1.8 0.4-5.4 10 ^3/uL Monocytes # (Auto) 0.6 0-1.3 10 ^3/uL Eosinophils # (Auto) 0 0-0.8 10 ^3/uL Basophils # (Auto) 0 0-0.2 10 ^3/uL Nucleated Red Blood Cells 0.1 % Prothrombin Time 11.4 9.3-11.8 sec Prothrombin Time INR 1.08 0.9-1.15 Activated Partial Thromboplast Time 27.4 24.5-34.5 SEC Sodium Level 140 136-145 mmol/L Potassium Level 4.2 3.5-5.1 mmol/L Chloride Level 104 98-107 mmol/L Carbon Dioxide Level 25 20-31 mmol/L Anion Gap 11 5-15 Blood Urea Nitrogen 14 9-23 mg/dL Creatinine 1.21 H 0.550-1.02 mg/dL Glomerular Filtration Rate Calc 49 >90 mL/min BUN/Creatinine Ratio 11.6 10.0-20.0 Serum Glucose 92 74-106 mg/dL Calcium Level 10.4 8.7-10.4 mg/dL Magnesium Level 1.7 1.6-2.6 mg/dL Total Bilirubin 0.4 0.2-1.0 mg/dL Aspartate Amino Transferase (AST) 26 13-40 U/L Alanine Aminotransferase (ALT) 27 7-40 U/L Alkaline Phosphatase 23 L 46-116 U/L B-Type Natriuretic Peptide 327.54 0-100 pg/mL Total Protein 7.7 5.7-8.2 g/dL Albumin 4.7 3.2-4.8 g/dL [place] [id number] Ph: [phone] DIAGNOSTIC IMAGING Diagnostic Imaging Report : [id number] Signed PATIENT: PAT ROCK ACCT: [id number] UNIT: [id number] : 1960 LOC: ER ROOM / BED: / AGE / SEX: 64 / F ADM STATUS: REG ER SERVICE [id number] ORDERING PHYSICIAN: PAOLA VILLALPANDO MD PROCEDURE(s): CXRP - CHEST PORTABLE REASON: CP ORDER NUMBER(s): [id number], ACCESSION NUMBER(s): [id number] EXAM: XY CHEST PORTABLE Indication: CP Technique: Single frontal view of the chest was obtained Comparison: XY CHEST PORTABLE on DOS: 01/20/24, XY CHEST PORTABLE on DOS: 10/14/22, XY CHEST PORTABLE on DOS: 09/27/22, XY CHEST PORTABLE on DOS: 09/10/22 FINDINGS: Lines and Tubes: None Lungs: No focal consolidation. Pleura: No effusion. No pneumothorax. Cardiomediastinal contours: Unremarkable Bones: No acute osseous abnormality. IMPRESSION: No acute cardiopulmonary disease. ATED BY: FELIX CHANDLER MD DICTATED DATE/TIME: 03/06/241325 SIGNED BY: FELIX CHANDLER MD SIGNED DATE/TIME: 03/06/241325 CC: Time of 1ST Reevaluation: 00:00 Reevaluation 1ST: Improved Patient Education/Counseling: Diagnosis, Treatment Family Education/Counseling: Other Comments Patient presented with the above HPI.----cardiac--workup was initiated. patient was found with the above mentioned diagnosis. Patient was given: Aspirin and nitroglycerin Patient ED course and VS have been stabilized. Patient has been reassessed in the ED and remained in a stable condition. Pertinent incidental findings were discussed with the patient and/or family. Patient/family voices understanding and is agreeable with plan. Patient has been observed in the ED adequate length of time to insure improvement/stability. patient was admitted to the medicine team for further evaluation and treatment of their presentation. All the reports of any imaging studies that were ordered by myself were reviewed by myself. Departure 1 Departure Time of Disposition: 12:54 Impression: Primary Impression: Chest pain Disposition: ADMITTED INPATIENT Admit to: Tele Condition: Guarded e-Prescriptions Baclofen (Baclofen) 5 Mg Tab 5 MG PO TIDPRN PRN for 7 Days, #21 TAB 0 Refills Prov: LISA DAY MD 03/07/24 Critical Care Note Critical Care Time?: No Heart Score Heart Score: Heart Score Response (Comments) Value History Moderate Suspicious 1 EKG Normal 0 Age >65 2 Risk Factors >3 or Hx ASHD 2 Troponin Normal limit 0 Total 5 DAO PIERRE DO Mar 06, 2024 12:53
--- NOTE | 2024-03-06 12:53 | ECG ---
[facility] Test Date: 2024-03-06 Test Time: 12:50:47 Pat Name: PAT ROCK Department: er Room: Gender: F Philosophy Specialist: solitario : 1960 Requested By: PAOLA VILLALPANDO Order Number: [id number] Reading MD: Measurements Intervals [place] Rate: 95 P: 0 NC: 0 QRS: -8 QRSD: 92 T: 19 QT: 335 QTc: 421 Interpretive Statements Atrial fibrillation Low voltage, extremity and precordial leads Baseline wander in lead(s) V6 Please click the below link to view image of tracing.
[2024-03-06 13:11] LABS: Basophils # (auto) 0 10 ^3/uL (0-0.2); Basophils % (auto) 0.4 % (0.0-2.0); Eosinophils # (auto) 0 10 ^3/uL (0-0.8); Eosinophils % (auto) 0.4 % (0.0-7.0); Hematocrit 46.7 % (36.0-46.0); Hemoglobin 15.8 g/dL (12.2-16.2); Lymphocytes # (auto) 1.8 10 ^3/uL (0.4-5.4); Lymphocytes % (auto) 27.2 % (10.0-50.0); Mean Corpuscular Hemoglobin 30.6 pg (28.0-32.0); Mean Corpuscular Hgb Conc. 33.9 g/dL (32.0-36.0); Mean Corpuscular Volume 90.3 fL (80.0-100.0); Monocytes # (auto) 0.6 10 ^3/uL (0-1.3); Monocytes % (auto) 8.5 % (0.0-12.0); Neutrophils # (auto) 4.3 10 ^3/uL (1.6-8.6); Neutrophils % (auto) 63.5 % (37.0-80.0); Nucleated Red Blood Cells % 0.1 %; Platelet Count (auto) 243 10^3/uL (140-450); Red Blood Cells 5.17 10^6/uL (4.0-5.20); White Blood Cell 6.8 10^3/uL (4.4-10.8)
--- NOTE | 2024-03-06 13:27 | DVH ---
EXAM: XY CHEST PORTABLE Indication: CP Technique: Single frontal view of the chest was obtained Comparison: XY CHEST PORTABLE on DOS: 01/20/24, XY CHEST PORTABLE on DOS: 10/14/22, XY CHEST PORTABLE o n DOS: 09/27/22, XY CHEST PORTABLE on DOS: 09/10/22 FINDINGS: Lines and Tubes: None Lungs: No focal consolidation. Pleura: No effusion. No pneumothorax. Cardiomediastinal contours: Unremarkable Bones: No acute osseous abnormality. IMPRESSION: No acute cardiopulmonary disease.
[2024-03-06 13:36] LABS: INR 1.08 (0.9-1.15); Partial Thromboplastin Time 27.4 SEC (24.5-34.5); Prothrombin Time 11.4 sec (9.3-11.8)
[2024-03-06 13:44] LABS: Alanine Aminotransferase 27 U/L (7-40); Albumin 4.7 g/dL (3.2-4.8); Alkaline Phosphatase 23 U/L (46-116); Anion Gap 11 (5-15); Aspartate Aminotransferase 26 U/L (13-40); BUN/Creatinine Ratio 11.6 (10.0-20.0); Bilirubin, Total 0.4 mg/dL (0.2-1.0); Blood Urea Nitrogen 14 mg/dL (9-23); Calcium 10.4 mg/dL (8.7-10.4); Carbon Dioxide 25 mmol/L (20-31); Chloride 104 mmol/L (98-107); Glucose 92 mg/dL (74-106); Magnesium 1.7 mg/dL (1.6-2.6); Potassium 4.2 mmol/L (3.5-5.1); Sodium 140 mmol/L (136-145); Total Protein 7.7 g/dL (5.7-8.2)
--- NOTE | 2024-03-06 13:50 | ECG ---
[facility] Test Date: 2024-03-06 Test Time: 13:49:26 Pat Name: PAT ROCK Department: ER Room: Gender: F Shift Production Associate: GP : 1960 Requested By: PAOLA VILLALPANDO Order Number: [id number] Reading MD: Measurements Intervals [place] Rate: 95 P: 0 MI: 0 QRS: 0 QRSD: 86 T: 59 QT: 333 QTc: 419 Interpretive Statements Atrial fibrillation Ventricular premature complex Low voltage, precordial leads Please click the below link to view image of tracing.
[2024-03-06] MEDS: NITROGLYCERIN 0.4 MG SL TAB SL ONE (15:19)
[2024-03-06] MEDS: ASPirin-EC 325mg tab PO ONE (15:19)
--- NOTE | 2024-03-06 17:26 | DVHHP2 ---
History of Present Illness Reason for Visit: Chest pain History of Present Illness Lucie Allred is a 64YO F with pmHx of Afib, HTN, Thyroid disease, CHF, and DM who presents to the ED with chest pain x 2 days along with SOB. Her past surgical hx includes cholecystectomy, hysterectomy, and bilateral knee replacements. Cardiovascular: AFIB, CHF, HTN Endocrine: Diabetes, Hypothyroidism Past Medical History Ovarian cysts Past Surgical History: Cholecystectomy, Hysterectomy, Total knee replacement (Bilateral) Family History: None Smoke: No ALCOHOL: none Drugs: None Lives: with Family Domestic Violence: Neg Review of Systems Constitutional: No: Fever, Chills, Sweats, Weakness, Malaise, Other Eyes: No: Pain, Vision change, Conjunctivae inflammation, Eyelid inflammation, Other, Redness ENT: No: Ear pain, Ear discharge, Nose pain, Nose discharge, Nose congestion, Mouth pain, Mouth swelling, Throat pain, Throat swelling, Other Respiratory: Shortness of breath; No: Cough, Dry, SOB with excertion, Wheezing, Hemoptysis, Pleuritic Pain, Sputum, Wheezing, Other Cardiovascular: Chest Pain; No: Palpitations, Orthopnea, Paroxysmal Noc. D yspnea, Edema, Lt Headedness, Other Gastrointestinal: No: Nausea, Vomiting, Abdominal Pain, Diarrhea, Constipation, Melena, Hematochezia, Other Genitourinary: No Dysuria, No Frequency, No Incontinence, No Hematuria, No Retention, No Other Musculoskeletal: No: other, neck pain, shoulder pain, arm pain, back pain, hand pain, leg pain, foot pain Neurological: No: Weakness, Numbness, Incoordination, Change in speech, Confusi on, Seizures, Other Allergies: Coded Allergies: NO KNOWN ALLERGIES (Unverified , 09/10/22) Exam Vital Signs Vital Signs Date Time Temp Pulse Resp B/P (MAP) Pulse Ox O2 Delivery O2 Flow Rate FiO2 03/06/24 16:21 83 16 127/72 (90) 97 03/06/24 12:53 97.6 General Appearance: Alert, Oriented X3, Cooperative HEENT: PERRLA Respiratory: Clear to auscultation, Normal air movement Cardiovascular: Normal S1, Normal S2, No murmurs Abdominal: Normal bowel sounds, Soft, No tenderness Extremities: No clubbing, No cyanosis, No edema, Normal pulses, No tenderness/swelling Skin: No rashes, No breakdown, No significant lesion Neuro: Normal gait, Normal speech, Strength at 5/5 X4 ext, Normal tone, Sensation intact Psych/Mental Status: Mental status NL, Mood NL Labs/Xrays Labs Test 03/06/24 16:06 03/06/24 12:46 Range/Units Troponin I High Sensitivity 6 </=34 ng/L White Blood Count 6.8 4.4-10.8 10^3/uL Red Blood Count 5.17 4.0-5.20 10^6/uL Hemoglobin 15.8 12.2-16.2 g/dL Hematocrit 46.7 H 36.0-46.0 % Mean Corpuscular Volume 90.3 80.0-100.0 fL Mean Corpuscular Hemoglobin 30.6 28.0-32.0 pg Mean Corpuscular Hemoglobin Concent 33.9 32.0-36.0 g/dL Red Cell Distribution Width 15.0 H 11.8-14.3 % Platelet Count 243 140-450 10^3/uL Mean Platelet Volume 9.8 6.9-10.8 fL Neutrophils (%) (Auto) 63.5 37.0-80.0 % Lymphocytes (%) (Auto) 27.2 10.0-50.0 % Monocytes (%) (Auto) 8.5 0.0-12.0 % Eosinophils (%) (Auto) 0.4 0.0-7.0 % Basophils (%) (Auto) 0.4 0.0-2.0 % Neutrophils # (Auto) 4.3 1.6-8.6 10 ^3/uL Lymphocytes # (Auto) 1.8 0.4-5.4 10 ^3/uL Monocytes # (Auto) 0.6 0-1.3 10 ^3/uL Eosinophils # (Auto) 0 0-0.8 10 ^3/uL Basophils # (Auto) 0 0-0.2 10 ^3/uL Nucleated Red Blood Cells 0.1 % Prothrombin Time 11.4 9.3-11.8 sec Prothrombin Time INR 1.08 0.9-1.15 Activated Partial Thromboplast Time 27.4 24.5-34.5 SEC Sodium Level 140 136-145 mmol/L Potassium Level 4.2 3.5-5.1 mmol/L Chloride Level 104 98-107 mmol/L Carbon Dioxide Level 25 20-31 mmol/L Anion Gap 11 5-15 Blood Urea Nitrogen 14 9-23 mg/dL Creatinine 1.21 H 0.550-1.02 mg/dL Glomerular Filtration Rate Calc 49 >90 mL/min BUN/Creatinine Ratio 11.6 10.0-20.0 Serum Glucose 92 74-106 mg/dL Calcium Level 10.4 8.7-10.4 mg/dL Magnesium Level 1.7 1.6-2.6 mg/dL Total Bilirubin 0.4 0.2-1.0 mg/dL Aspartate Amino Transferase (AST) 26 13-40 U/L Alanine Aminotransferase (ALT) 27 7-40 U/L Alkaline Phosphatase 23 L 46-116 U/L B-Type Natriuretic Peptide 327.54 0-100 pg/mL Total Protein 7.7 5.7-8.2 g/dL Albumin 4.7 3.2-4.8 g/dL EXAM: XY CHEST PORTABLE FINDINGS: Lines and Tubes: None Lungs: No focal consolidation. Pleura: No effusion. No pneumothorax. Cardiomediastinal contours: Unremarkable Bones: No acute osseous abnormality. IMPRESSION: No acute cardiopulmonary disease. Assessment/Plan Assessment/Plan Assessment: Acute chest pain SOB Hx of Afib HTN Thyroid disease CHF DM Plan: Cardiology consult ASA Beta blockers Statin IVf diet as tolerated Pain management Reconcile meds Plan discussed with: Patient Date of Service: Mar 06, 2024 Billing Provider: NOAM LEY Common Visit Codes: [id number] INP/OBS CARE (MOD) NOAM LEY Mar 06, 2024 17:26
[2024-03-06] MEDS ORDERED: AMIO200T13 PO (18:53)
[2024-03-06] MEDS ORDERED: DOCUSATE SOD 100 MG CAP PO PRN (19:00)
[2024-03-06] MEDS ORDERED: ONDANSETRON HCL 4 MG/2 ML VIAL IV PRN (19:00)
[2024-03-06] MEDS ORDERED: NITROGLYCERIN 0.4 MG SL TAB SL PRN (19:00)
[2024-03-06] MEDS ORDERED: MORPHINE SULFATE INJ 2 MG/ml SYRG IV PRN ×2 (19:00)
[2024-03-06] MEDS ORDERED: ACETAMINOPHEN 325 MG TAB PO PRN (19:00)
[2024-03-06] MEDS: ASPirin 81 mg TAB PO ONE (19:25)
[2024-03-06] MEDS: HYDROcodone-ACET 5/325MG TAB PO PRN (19:29)
[2024-03-06] MEDS: METOPROLOL TARTRATE 25 MG TAB PO SCH (22:00)
[2024-03-06] MEDS: APIXABAN 5 MG TAB PO SCH (22:00)
[2024-03-06 22:07] VITALS: BP 135/68; PULSE 75; RESP 18; TEMP 98; O2SAT 96
[2024-03-06] MEDS: SODIUM CHLOR 0.9% PF (SALINE LOCK) 10ML VIAL/SYR IV SCH (23:31)
[2024-03-06] MEDS: ATORVASTATIN 20 MG TAB PO SCH (23:31)
[2024-03-06 23:39] VITALS: BP 135/68; PULSE 75; RESP 18; TEMP 98; O2SAT 96
[2024-03-07] VITALS (8 sets, daily range): BP systolic 94–127; BP diastolic 61–63; PULSE 60–73; RESP 15–18; TEMP 97.7–98.5; O2SAT 94–100
[2024-03-07] MEDS ORDERED: METO25TA5 PO (04:46)
[2024-03-07] MEDS ORDERED: AMIO200T33 PO (04:46)
[2024-03-07] MEDS: LEVOTHYROXINE SODIUM 50 MCG TAB PO SCH (06:20)
[2024-03-07 07:04] LABS: Basophils # (auto) 0 10 ^3/uL (0-0.2); Basophils % (auto) 0.2 % (0.0-2.0); Eosinophils # (auto) 0.1 10 ^3/uL (0-0.8); Eosinophils % (auto) 1.6 % (0.0-7.0); Hematocrit 41.2 % (36.0-46.0); Hemoglobin 13.7 g/dL (12.2-16.2); Lymphocytes # (auto) 2.1 10 ^3/uL (0.4-5.4); Lymphocytes % (auto) 49.5 % (10.0-50.0); Mean Corpuscular Hemoglobin 30.1 pg (28.0-32.0); Mean Corpuscular Hgb Conc. 33.3 g/dL (32.0-36.0); Mean Corpuscular Volume 90.5 fL (80.0-100.0); Monocytes # (auto) 0.5 10 ^3/uL (0-1.3); Monocytes % (auto) 11.3 % (0.0-12.0); Neutrophils # (auto) 1.6 10 ^3/uL (1.6-8.6); Neutrophils % (auto) 37.4 % (37.0-80.0); Nucleated Red Blood Cells % 0.5 %; Platelet Count (auto) 195 10^3/uL (140-450); Red Blood Cells 4.56 10^6/uL (4.0-5.20); Red Cell Distribution Width 14.7 % (11.8-14.3); White Blood Cell 4.3 10^3/uL (4.4-10.8)
[2024-03-07 07:24] LABS: Alanine Aminotransferase 22 U/L (7-40); Albumin 4.1 g/dL (3.2-4.8); Alkaline Phosphatase 19 U/L (46-116); Anion Gap 9 (5-15); Aspartate Aminotransferase 21 U/L (13-40); BUN/Creatinine Ratio 15.6 (10.0-20.0); Bilirubin, Total 0.4 mg/dL (0.2-1.0); Blood Urea Nitrogen 15 mg/dL (9-23); Calcium 9.6 mg/dL (8.7-10.4); Carbon Dioxide 26 mmol/L (20-31); Chloride 103 mmol/L (98-107); Glucose 97 mg/dL (74-106); Potassium 3.8 mmol/L (3.5-5.1); Sodium 138 mmol/L (136-145); Total Protein 6.4 g/dL (5.7-8.2)
[2024-03-07] MEDS: ASPirin 81 mg TAB PO SCH (08:40)
--- NOTE | 2024-03-07 09:49 | DVHINCON2 ---
Date of service: Mar 07, 2024 History of Present Illness HPI Patient is a 64-year-old female who presented with 2 days of atypical chest discomforts and left shoulder pain. Discomforts change by different positioning and movement of the neck. Cardiology is involved for cardiac aspect of care. Patient is known to our practice from outside and before. Serial troponin has been negative. EKG has been unrevealing. Patient does have history of atrial f ibrillation and is on chronic anticoagulation therapy. Has a baseline dyspnea on exertion. She is morbidly obese. Home Meds Active Scripts Albuterol Sulfate (VENTOLIN MDI) 90 Mcg Ih, 90 MCG IN Q4HPRN PRN for 30 Days, #1 INH Prov:THANG NEWMAN Mohamud [employer]ER[employer] TECHNICAL OFFICER 09/29/22 Reported Medications Metoprolol Tartrate (Metoprolol Tartrate) 25 Mg Tab, 1 TAB PO BID, #180 TAB 1 Refill 03/07/24 Amiodarone Hcl (Amiodarone Hcl) 200 Mg Tab, 200 MG PO DAILY for 30 Days 03/07/24 Fenofibrate (Fenofibrate) 160 Mg Tab, 160 MG PO DAILY, TAB 01/21/24 Apixaban Base (ELIQUIS) 5 Mg Tab, 5 MG PO BID, TAB 01/21/24 Hydrochlorothiazide (Hydrochlorothiazide) 25 Mg Tab, 25 MG PO QAM, MG 01/21/24 Pravastatin Sodium (PRAVACHOL TABLET) 20 Mg Tb, 1 TAB PO HS, TAB 01/21/24 Omeprazole (Omeprazole Dr) 40 Mg Cap, 40 MG PO DAILY, CAP 01/21/24 Glipizide (Glipizide) 5 Mg Tab, 5 MG PO DAILY, MG 09/11/22 Cholecalciferol (D3) 1,000 Unit Cap, 1000 UNIT PO DAILY, CAP 09/11/22 Metformin Hydrochloride (Metformin Hcl) 850 Mg Tab, 850 MG PO BID, MG 09/11/22 Levothyroxine Sodium (Levothyroxine Sodium) 25 Mcg Tab, 25 MCG PO QAM, MCG 09/11/22 Discontinued Reported Medications Amiodarone HCl (Amiodarone HCl) 200 Mg Tab, 1 TAB PO BID 03/06/24 Metoprolol Tartrate (Metoprolol Tartrate) 25 Mg Tab, 25 MG PO TID, MG 01/21/24 Discontinued Scripts Prednisone (Prednisone) 10 Mg Tab, 10 MG PO BID for 3 Days, #8 MG Prov:NIKHIL GILL MD 01/23/24 Doxycycline Hyclate (Doxy 100) 100 Mg Inj, 100 MG PO BID for 5 Days, #10 TAB Prov:NIKHIL GILL MD 01/23/24 Past Medical History Others Past medical history includes morbid obesity, atrial fibrillation (on rate control strategy and Eliquis as outpatient), hypertension, hyperlipidemia, hypothyroidism, diabetes mellitus, diastolic heart failure, pulmonary hypertension, DJD, hiatal hernia, GERD, diverticulosis, history of cholecystectomy/hysterectomy/bilateral knee replacement and history ovarian cysts. Patient Family History: Diabetes mellitus Grandmother FH: ALS (amyotrophic lateral sclerosis) G8 MOTHER FH: cancer Smoker: No Hx (Negative) Alocohol: None Drugs: None Review of Systems Constitutional: No symptom reported Ears, Nose, & Throat: No symptom reported Cardiovascular: Chest Pain All Other Systems Fourteen point review of system was performed. Relevant findings as per above and as per HPI. Otherwise negative. H&P Exam Vital Signs Vital Signs Date Time Temp Pulse Resp B/P (MAP) Pulse Ox O2 Delivery O2 Flow Rate FiO2 03/07/24 08:51 97.7 66 15 94/61 (72) 99 97.7 03/06/24 23:39 Room Air* 0 21 General Appeara: Well developed, Obese Head Exam: Normal inspection Neck Exam: Normal inspection Eye Exam: bilateral eye PERRL Mouth: Normal Inspection Pulmonary/Respiratory: Normal inspection, Lungs clear Cardiovascular/Chest: Normal inspection, Regular rate, Systolic murmur Peripheral Pulses: 2+ carotid (R), 2+ carotid (L), 2+ femoral (R), 2+ femoral (L), 2+ dorsalis pedis (R), 2+ dorsalis pedis (L), 2+ Radial (R), 2+ Radial (L) Abdominal Exam: Normal bowel sounds, Soft, No hepatospenomegaly Neuro/Mental St: Alert, Oriented Appearance: Appropriate appearance Eye contact/ Speech: Cooperative Labs/Xrays Labs Test 03/07/24 05:07 03/06/24 16:06 03/06/24 12:46 Range/Units White Blood Count 4.3 #L 4.4-10.8 10^3/uL Red Blood Count 4.56 4.0-5.20 10^6/uL Hemoglobin 13.7 12.2-16.2 g/dL Hematocrit 41.2 # 36.0-46.0 % Mean Corpuscular Volume 90.5 80.0-100.0 fL Mean Corpuscular Hemoglobin 30.1 28.0-32.0 pg Mean Corpuscular Hemoglobin Concent 33.3 32.0-36.0 g/dL Red Cell Distribution Width 14.7 H 11.8-14.3 % Platelet Count 195 140-450 10^3/uL Mean Platelet Volume 10.3 6.9-10.8 fL Neutrophils (%) (Auto) 37.4 37.0-80.0 % Lymphocytes (%) (Auto) 49.5 10.0-50.0 % Monocytes (%) (Auto) 11.3 0.0-12.0 % Eosinophils (%) (Auto) 1.6 0.0-7.0 % Basophils (%) (Auto) 0.2 0.0-2.0 % Neutrophils # (Auto) 1.6 1.6-8.6 10 ^3/uL Lymphocytes # (Auto) 2.1 0.4-5.4 10 ^3/uL Monocytes # (Auto) 0.5 0-1.3 10 ^3/uL Eosinophils # (Auto) 0.1 0-0.8 10 ^3/uL Basophils # (Auto) 0 0-0.2 10 ^3/uL Nucleated Red Blood Cells 0.5 % Sodium Level 138 136-145 mmol/L Potassium Level 3.8 3.5-5.1 mmol/L Chloride Level 103 98-107 mmol/L Carbon Dioxide Level 26 20-31 mmol/L Anion Gap 9 5-15 Blood Urea Nitrogen 15 9-23 mg/dL Creatinine 0.96 0.550-1.02 mg/dL Glomerular Filtration Rate Calc 65 >90 mL/min BUN/Creatinine Ratio 15.6 10.0-20.0 Serum Glucose 97 74-106 mg/dL Calcium Level 9.6 8.7-10.4 mg/dL Total Bilirubin 0.4 0.2-1.0 mg/dL Aspartate Amino Transferase (AST) 21 13-40 U/L Alanine Aminotransferase (ALT) 22 7-40 U/L Alkaline Phosphatase 19 L 46-116 U/L Total Protein 6.4 5.7-8.2 g/dL Albumin 4.1 3.2-4.8 g/dL Troponin I High Sensitivity 6 </=34 ng/L Prothrombin Time 11.4 9.3-11.8 sec Prothrombin Time INR 1.08 0.9-1.15 Activated Partial Thromboplast Time 27.4 24.5-34.5 SEC Magnesium Level 1.7 1.6-2.6 mg/dL B-Type Natriuretic Peptide 327.54 0-100 pg/mL Assessment/Plan Plan Patient is a 64-year-old female who presented with 2 days of atypical chest discomforts and left shoulder pain. Discomforts change by different positioning and movement of the neck. Cardiology is involved for cardiac aspect of care. Patient is known to our practice from outside and before. Serial troponin has been negative. EKG has been unrevealing. Patient does have history of atrial fibrillation and is on chronic anticoagulation therapy. Has a baseline dyspnea on exertion. She is morbidly obese. Not in acute distress. Lying flat in bed. At using accessory muscles of breathing. There is no JVD. Mucosa is pink and wet. There is no goiter. There is no carotid bruit. Lungs are clear to auscultation. Cardiac: Irregular, no thrills/gallop. Systolic murmur 2/6 in the apex S2 heard. Abdomen is soft and obese. Bowel sounds positive. There is no gross mass/hepatomegaly. Extremities reveal 1+ edema bilaterally. Dorsalis pedis is 2+ bilateral Past medical history includes morbid obesity, atrial fibrillation (on rate control strategy and Eliquis as outpatient), hypertension, hyperlipidemia, hypothyroidism, diabetes mellitus, diastolic heart failure, pulmonary hypertension, DJD, hiatal hernia, GERD, diverticulosis, history of cholecystectomy/hysterectomy/bilateral knee replacement and history ovarian cysts. Echocardiogram of July 24, 2021 (performed in the office) revealed mild concentric left ventricular hypertrophy, ejection fraction of 60 to 65%, mo derate left atrial enlargement, mild right atrial enlargement, mild MR, minimal MVP, mild to moderate TR, trace PI and right ventricular systolic pressure of 41 mmHg Echocardiogram of September 11, 2022 revealed, ejection fraction of 55 to 60%, left ventricular hypertrophy, dilated right ventricule with normal systolic function, moderate biatrial enlargement, mild MR, mild to moderate TR, right ankle systolic pressure of 54 mmHg Echocardiogram of January 21, 2024 had revealed ejection fraction of 55%, atrial fibrillation, moderate right-sided dilatation and right ventricular systolic pressure of 70 mm Hg. Nuclear stress test of May 12, 2023 (performed in the office) revealed normal perfusion Creatinine: 1.21-0.96 Potassium: 4.2-3.8 Troponin (high sensitivity): 6 BNP: 327.54 Chest x-ray revealed: IMPRESSION: No acute cardiopulmonary disease. EKG revealed atrial fibrillation with moderate ventricular response Tele reveals atrial fibrillation with moderate ventricular response Patient is a 64-year-old female who presented with atypical chest discomfort/neck discomfort. Serial high sensitive troponin has been negative. Nuclear stress test has been negative in early April 2023 (performed in the office). Acute coronary syndrome it is not considered. At this point, no further ischemic workup is indicated. She is known to have atrial fibrillation (rate control strategy). She also has pulmonary hypertension/diastolic heart failure. Atypical chest pain Atrial fibrillation, persistent Diastolic CHF, chronic Pulmonary Hypertension Diabetes mellitus Morbid obesity Hypothyroidism GERD Hiatal hernia Cardiac suggestion for management: Manage on telemetry Follow-up electrolytes and kidney function tests and correct abnormalities. Keep potassium above 4 and magnesium above 2 Long-term anticoagulation is advised Acute coronary syndrome it is not considered. At this point, no further ischemic workup is indicated. Thank you for consultation Cardiac-soni, patient can be followed as outpatient. Further evaluation and management depends on the above and clinical course A total of 75 minutes was spent reviewing the patient record, examining the patient, making a diagnostic and therapeutic plan, discussing this plan with medical personnel, following up on diagnostic studies and following the patient for clinical stability excluding any and all procedures. At least 50% of this time was spent in direct, [id number] contact. Thank you for allowing me to participate in this patient's care. Further recommendations will depend on patient's clinical course. Please do not hesitate to contact me if you have any questions or concerns. This medical document was created using electronic medical record system with [employer] dictation system. Although this document has been carefully reviewed, there may still be some phonetic and typographical errors. These areas are purely typographical due to the imperfection of the software programs, and do not reflect any compromise in the patient's medical care. Plan discussed with: Patient, Other (nurse) CHRISTIAN SAMUEL MD Mar 07, 2024 09:49
[2024-03-07] MEDS ORDERED: BACL5TAB2 PO (14:35)
--- NOTE | 2024-03-07 14:46 | DVHDS2 ---
Discharge Summary Date of Admission Mar 06, 2024 at 18:54 Date of Discharge: Mar 07, 2024 Labs/Diagnostic Data: Laboratory Results Test 03/07/24 05:07 03/06/24 16:06 03/06/24 12:46 White Blood Count 4.3 10^3/uL (4.4-10.8) Red Blood Count 4.56 10^6/uL (4.0-5.20) Hemoglobin 13.7 g/dL (12.2-16.2) Hematocrit 41.2 % (36.0-46.0) Mean Corpuscular Volume 90.5 fL (80.0-100.0) Mean Corpuscular Hemoglobin 30.1 pg (28.0-32.0) Mean Corpuscular Hemoglobin Concent 33.3 g/dL (32.0-36.0) Red Cell Distribution Width 14.7 % (11.8-14.3) Platelet Count 195 10^3/uL (140-450) Mean Platelet Volume 10.3 fL (6.9-10.8) Neutrophils (%) (Auto) 37.4 % (37.0-80.0) Lymphocytes (%) (Auto) 49.5 % (10.0-50.0) Monocytes (%) (Auto) 11.3 % (0.0-12.0) Eosinophils (%) (Auto) 1.6 % (0.0-7.0) Basophils (%) (Auto) 0.2 % (0.0-2.0) Neutrophils # (Auto) 1.6 10 ^3/uL (1.6-8.6) Lymphocytes # (Auto) 2.1 10 ^3/uL (0.4-5.4) Monocytes # (Auto) 0.5 10 ^3/uL (0-1.3) Eosinophils # (Auto) 0.1 10 ^3/uL (0-0.8) Basophils # (Auto) 0 10 ^3/uL (0-0.2) Nucleated Red Blood Cells 0.5 % Sodium Level 138 mmol/L (136-145) Potassium Level 3.8 mmol/L (3.5-5.1) Chloride Level 103 mmol/L (98-107) Carbon Dioxide Level 26 mmol/L (20-31) Anion Gap 9 (5-15) Blood Urea Nitrogen 15 mg/dL (9-23) Creatinine 0.96 mg/dL (0.550-1.02) Glomerular Filtration Rate Calc 65 mL/min (>90) BUN/Creatinine Ratio 15.6 (10.0-20.0) Serum Glucose 97 mg/dL (74-106) Calcium Level 9.6 mg/dL (8.7-10.4) Total Bilirubin 0.4 mg/dL (0.2-1.0) Aspartate Amino Transferase (AST) 21 U/L (13-40) Alanine Aminotransferase (ALT) 22 U/L (7-40) Alkaline Phosphatase 19 U/L (46-116) Total Protein 6.4 g/dL (5.7-8.2) Albumin 4.1 g/dL (3.2-4.8) Troponin I High Sensitivity 6 ng/L (</=34) Prothrombin Time 11.4 sec (9.3-11.8) Prothrombin Time INR 1.08 (0.9-1.15) Activated Partial Thromboplast Time 27.4 SEC (24.5-34.5) Magnesium Level 1.7 mg/dL (1.6-2.6) B-Type Natriuretic Peptide 327.54 pg/mL (0-100) Other Laboratory Tests 03/07/24 05:07 Brief Hx & Hospital Course: 64-year-old female who presented with 2 days of atypical chest discomforts and left shoulder pain. Discomforts change by different positioning and movement of the neck. Serial troponin has been negative. EKG has been unrevealing. she has pinch nerve per recent outpatient work-up. The pain in her chest was similarly affecting left back as well. she is asymptomatic since in hospital. the pain appears it may have started with an inappropirate posture during prior night sleep. patient admited for chest pain ruleout. ELIZABETH noted initially resolves next check. cardiology consulted with dr gardiner/dr montiel group. the group recently did Nuclear stress test that was negative in early April 2023 (performed in the office). Acute coronary syndrome it is not considered. cardiology recommend no further ischemic workup. this is likely msk pain, GERD possible but patient already on antacid nexium at home. patient stable to ma with plan below. diagnosis: chest pain, ruled out ACS, msucloskeletal pain possible; GERD possible; ELIZABETH resolved, Afib chronic discharge plan: - trial 7 days baclofen nightly + as needed if the medication is helping. ok to use tylenol > ibuprofen as needed. - hold off lipitor and fenofibrate until PCP f/u. risk of myopathy with two medications together, PCP will review risk. - PCP follow-up 1-2 week. recommend PCP review glipizide use (risk hypoglycemia) - continue other home medications not mentioned above. return to ED if pain is severe, unremitting. Condition at Discharge: Fair Final Diagnosis/Problems List chest pain, ruled out ACS Discharge Disposition: Home Discharge Instruct/Medications Diet: Consistent carbohydrate Activity: No Restrictions, As Tolerated Follow Up/Referral: PCP Discharge Statement: "Patient was advised to return to the ER or call 911 if any headaches, dizziness, shortness of breath, chest pain, abdominal pain, bleeding, fevers, or worsening of medical condition. Patient was counseled about treatment plan, medications, possible side effects, patientverbalized understanding. All questions were answered to the best of my ability. This discharge took greater then 30 minutes in planning, reviewing documentation, counseling the patient, and discussing with other team members." ASSESSMENT ASSESSMENT Assessment chest pain, ruled out ACS Date of Service: Mar 07, 2024 Billing Provider: LISA DAY MD Common Visit Codes: 81914-[id number] INP/OBS CARE(HIGH), 32724-XFH/OBS DISCH DAY >30min LISA DAY MD Mar 07, 2024 14:46
== END 2024-03-07 18:00 | disposition home or self-care (01) | DRG 313 ==
LOC: ER 12:38 → TELE 18:54 → TELE-WESTW 22:07
PROVIDERS: ATTEND Student in an Organized Health Care Education/Training Program
DX: R07.89 Other chest pain (principal); I48.20 Chronic atrial fibrillation, unspecified; Z68.41 Body mass index [BMI] 40.0-44.9, adult; I50.32 Chronic diastolic (congestive) heart failure; I11.0 Hypertensive heart disease with heart failure; I27.20 Pulmonary hypertension, unspecified; E11.9 Type 2 diabetes mellitus without complications; E78.5 Hyperlipidemia, unspecified; I48.0 Paroxysmal atrial fibrillation; K21.9 Gastro-esophageal reflux disease without esophagitis; E03.9 Hypothyroidism, unspecified; K44.9 Diaphragmatic hernia without obstruction or gangrene; E66.01 Morbid (severe) obesity due to excess calories; Z96.653 Presence of artificial knee joint, bilateral; Z90.49 Acquired absence of other specified parts of digestive tract; Z87.891 Personal history of nicotine dependence; Z79.84 Long term (current) use of oral hypoglycemic drugs; Z79.01 Long term (current) use of anticoagulants; Z83.3 Family history of diabetes mellitus; Z79.899 Other long term (current) drug therapy; Z82.0 Family history of epilepsy and other diseases of the nervous system
CPT/HCPCS: 36415; 71045; 80053; 83735; 83880; 84484; 85025; 85610; 85730; 93005; G0378

== ENCOUNTER 2025-02-21 07:13 | Day surgery (SDC) | payer MEDICARE, OTHER ==
[2025-02-16 13:09] LABS: Hematocrit 41.5 % (36.0-46.0); Hemoglobin 13.8 g/dL (12.2-16.2); Mean Corpuscular Hemoglobin 30.8 pg (28.0-32.0); Mean Corpuscular Volume 92.6 fL (80.0-100.0); Nucleated Red Blood Cells % 0.0 %
[2025-02-16 13:23] LABS: INR 1.03 (0.9-1.15); Partial Thromboplastin Time 24.2 SEC (24.5-34.5); Prothrombin Time 10.9 sec (9.3-11.8)
[2025-02-16 13:29] LABS: Alanine Aminotransferase 23 U/L (7-40); Anion Gap 9 (5-15); BUN/Creatinine Ratio 12.1 (10.0-20.0); Blood Urea Nitrogen 13 mg/dL (9-23); Calcium 9.4 mg/dL (8.7-10.4); Carbon Dioxide 29 mmol/L (20-31); Chloride 100 mmol/L (98-107); Glucose 82 mg/dL (74-106); Potassium 4.2 mmol/L (3.5-5.1); Sodium 138 mmol/L (136-145); Total Protein 7.4 g/dL (5.7-8.2)
[2025-02-16 13:30] LABS: Albumin 4.4 g/dL (3.2-4.8); Alkaline Phosphatase 24 U/L (46-116); Bilirubin, Total 0.4 mg/dL (0.2-1.0)
[2025-02-16 13:44] LABS: Urine Protein, UAD Negative (Negative)
[~2025-02-21] VITALS: Ht 165.1 cm; Wt 99.3 kg
[~2025-02-21 07:13] MED LIST changes: -ALBUAER3 IN; -APIX5TAB PO; +ASPI1TAB20 PO; +BIOT5TAB3 PO; +CALC-179 OR; +COEN400C8 OR; +CRAN125T PO; +CYAN-17 PO; +DOCU-94 PO; -DOX100PBAE PO; +FERR1TAB36 PO; -LEVO25TA6 PO; +MULT1LIQ PO; +OMEG306C OR; +POTA-36 PO; -PRED10TA PO; +PROG200C21 PO; +SEMA2INJ3 SC
[2025-02-21] MEDS ORDERED: ceFAZolin 2 GM/D5W50ml 50 ML IV ONE ×2 (07:40→07:42)
[2025-02-21] MEDS ORDERED: BACITRACIN TOP OINT 1 UD PKG TOP ONE (08:21)
[2025-02-21] MEDS ORDERED: ROPIVACAINE 0.5% (5MG/ML) 20ML AMPULE IJ ONE (08:21)
[2025-02-21] MEDS ORDERED: fentaNYL CITRATE 100 MCG/2 ML VL ONE (08:35)
[2025-02-21] MEDS ORDERED: MIDAZOLAM HCL 2MG/2ML 2ml VIAL (1mg/ml) ONE (08:35)
[2025-02-21] MEDS ORDERED: PROPOFOL 10 MG/ML 20 ML IV ONE (08:35)
[2025-02-21] MEDS ORDERED: methylPREDNISolone ACETATE 80 MG/ML VL ONE (08:59)
[2025-02-21] MEDS ORDERED: HYDROmorphone HCL 2 MG/ML VL/or syr IV PRN (09:15)
[2025-02-21] MEDS ORDERED: hydrALAZINE HCL 20 MG/ML VL IV PRN (09:15)
[2025-02-21] MEDS ORDERED: fentaNYL CITRATE 100 MCG/2 ML VL IV PRN (09:15)
[2025-02-21] MEDS ORDERED: ONDANSETRON HCL 4 MG/2 ML VIAL IV PRN (09:15)
[2025-02-21] MEDS ORDERED: MORPHINE SULFATE 4 MG/ML SYR/VIAL IV PRN (09:15)
[2025-02-21] MEDS ORDERED: MIDAZOLAM HCL 2MG/2ML 2ml VIAL (1mg/ml) IV PRN (09:15)
[2025-02-21 09:20] VITALS: PULSE 57; RESP 12; O2SAT 98
--- NOTE | 2025-02-21 09:25 | DVHOP2 ---
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 Lakia MD Anesthesia: Mac Consent: The patient was informed of the risks and benefits of the procedure. These include but are not limited to complications of anesthesia, postoperative infection, incomplete relief of symptoms, recurrence of symptoms, damage to blood vessels, nerves and tendons, deep venous thrombosis, pulmonary embolism and possible need for repeat surgery in the future. Name of Procedure Performed Endoscopic decompression of intermetatarsal neuroma 2nd right interspace Procedure Details Procedure Details: The patient was brought to the operating room placed placed on the operating table in the supine position. After MAC anesthesia was achieved approximately 10 cc of 0.5% ropivacaine plain was injected in local and fresh fashion to the 2nd right interspace without incident. The right foot and leg was then prepped and draped in the proper aseptic manner which time an ankle tourniquet was applied and inflated to 250 mm of pressure after appropriate elevation and exsan guination utilizing an Esmarch. Attention was now directed to procedure 1. Procedure 1. Endoscopic decompression/neurolysis intermetatarsal neuroma 2nd right interspace: At this time, the 2nd right interspace was marked with topographical markings to ensure proper cannula placement. A longitudinal line was made over the dorsal aspect of the interspace between the respective metatarsal heads from proximal to distal. The metatarsal heads were then palpated whereby a dorsal incision was placed approximately 2.5 cm proximal to the level of the metatarsophalangeal joint without incident. . Utilizing 15. Blade a small 4 mm transverse incision was made on the dorsal aspect of the interspace delineated by the markings. Careful attention was made not to transect the tissue deeper than the dermis. Protection of the superficial peroneal nerve branches was then achieved utilizing blunt dissection with Virgen tenotomy scissors to make the portal deeper between the respective metatarsal heads. At this time, the metatarsal retractor was then placed into the portal and gradual retraction was made on the instrument. This cause tension on the transverse intermetatarsal ligament. At this time, another incision was made in the affected webspace in a transverse manner between the dorsal and plantar neurovascular bundles. The incision was then done just subdermal with careful attention to protect the tiny dermal nerve branches. The incision was deepened with blunt dissection utilizing tenotomy scissors down to the level of the transverse intermetatarsal ligament. The elevators were then used to make a channel underneath the transverse intermet atarsal ligament for placement of the cannula. It should be noted that proper tissue planes were identified by the minimal resistance on the instrument during its placement. Once the elevator was placed inferior to the transverse intermetatarsal ligament, dorsal pressure was then placed on the instrument to feel the unforgiving rigidity of the transverse intermetatarsal ligament. At this time, placement of an oval cannula in the same position beneath the transverse intermetatarsal ligament that was achieved by the elevator. The obturator was then removed and the cannula was left in place. At this time, utilizing a 2.7 mm 30 degree beveled scope allowed visualization of the on the monitor of the transverse intermetatarsal ligament. The transverse interm etatarsal ligaments proximal border was identified and it could be differentiated from the tissue proximal to it. At this time, introducing an angled hook blade in the same cannula, the transverse intermetatarsal ligament was transected from proximal to distal into two separate edges. The ligamentous edges were then identified endoscopically and they were noted to separate upon p lacement of further retraction of the intermetatarsal retractor appropriate photographs were taken. The obturator was then placed in the cannula and the cannula after instrumentation was removed from the interspace without incident. The elevator was then reintroduced into the portal incision. It was noted the to have any dorsal resistance against it from its transected side of the intermetatarsal ligament. 4-0 Prolene was used to close both incisions areas. After cc Depo-Medrol 80 milligrams/mL was injected in the space in local infiltration fashion. Surgical dressing consisted of bacitracin ointment Xeroform 4x4s Kerlix and Coban to yield a mildly compressive type bandage the ankle tourniquet was released and immediate normoactive hyperemia returned to all digits with good digital perfusion present. There were no intra op complications the patient left the operating room to recovery room in stable condition. It is important to note that the patient was prophylaxed 2 g of IV Ancef prior to surgery. Patient given strict instructions to ambulate in the surgical shoe only not one step without patient given strict instructions to keep dressing intact clean and dry. Patient has postop medications at home to manage his brought her postoperative pain as needed. Patient also has a hair postoperative 1st follow visit to my office after surgery as well. Specimen: None Condition Stable Disposition Home THALIA ATKINS DPM Feb 21, 2025 09:25
[2025-02-21 09:30] VITALS: PULSE 66; RESP 16; O2SAT 100
[2025-02-21] MEDS ORDERED: ACETAMINOPHEN IV 1000 MG/100ML (10MG/ML) IV ONE (09:30)
[2025-02-21 09:50] VITALS: BP 134/63; PULSE 61; RESP 17; O2SAT 95
== END 2025-02-21 10:00 | disposition home or self-care (01) ==
LOC: SUR 07:13
PROVIDERS: ATTEND Podiatrist Foot & Ankle Surgery
DX: G57.61 Lesion of plantar nerve, right lower limb (principal); G57.81 Other specified mononeuropathies of right lower limb; I48.91 Unspecified atrial fibrillation; I11.0 Hypertensive heart disease with heart failure; I50.9 Heart failure, unspecified; E11.9 Type 2 diabetes mellitus without complications; E03.9 Hypothyroidism, unspecified; K44.9 Diaphragmatic hernia without obstruction or gangrene; E66.9 Obesity, unspecified; Z68.36 Body mass index [BMI] 36.0-36.9, adult; Z79.82 Long term (current) use of aspirin; Z79.84 Long term (current) use of oral hypoglycemic drugs; Z79.890 Hormone replacement therapy; Z79.899 Other long term (current) drug therapy; Z90.710 Acquired absence of both cervix and uterus; Z96.653 Presence of artificial knee joint, bilateral; Z98.890 Other specified postprocedural states; Z82.0 Family history of epilepsy and other diseases of the nervous system; Z83.3 Family history of diabetes mellitus; Z80.9 Family history of malignant neoplasm, unspecified
CPT/HCPCS: 28899; 36415; 80053; 81001; 82962; 85025; 85610; 85730; J0690; J1010; J1100; J2250; J2704; J2795; J3010